=== PATIENT | female | born 1975 | race Caucasian/White ===

== ENCOUNTER 2020-01-08 10:03 | Emergency (ER) | payer SELFPAY ==
[~2020-01-08] VITALS: Ht 165.1 cm; Wt 81.6 kg
[2020-01-08] MEDS ORDERED: ACETAMINOPHEN 325 MG TAB PO ONE (11:15)
[2020-01-08] MEDS ORDERED: KETOROLAC TROMETHAMINE 60 MG/2 ML VIAL IM ONE (11:15)
--- NOTE | 2020-01-08 11:16 | NUR ---
REC'D PT IN [facility] WITH C/O PAIN TO THE RIGHT HAND.
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
--- OUTSIDE RECORDS SUMMARY | 2020-01-08 11:30 | XMS REPORT | Summary of Care ---
Author Author [facility] - Health Organization [facility] - Health Address Unknown Phone Unavailable Care Team Providers Care Ripening Room Operator Name Role Phone Pcp, Patient Does Not Have A PCP [phone] Reason for Visit * Reason Comments Refill Request Encounter Details Care Team Description Date Type Department Rg Nation MD [address] [phone] Refill Request 09/26/2019 Refill [facility] [address] [place] [phone] Allergies Comments Active Allergy Reactions Severity Noted Date Codeine Nausea and/or 02/03/2006 Vomiting, Rash Throat swelling Penicillins Rash, Unknown 02/03/2006 - See comments documented as of this encounter (statuses as of 09/26/2019) Medications End Date Status Medication Sig Dispensed Refills Start Date Active lisinopril 40 mg Take 1 tablet 90 tablet 0 02 tabletIndications: by mouth 0 Essential hypertension daily. Active zolpidem 5 mg Take 1 tablet 30 tablet 0 tabletIndications: by mouth at 0 Insomnia, unspecified bedtime as type needed for Insomnia. 09/26/2019 Discontinued (Reorder) lisinopril 40 mg Take 1 tablet 90 tablet 3 01 tabletIndications: by mouth 9 Essential hypertension daily. 09/26/2019 Discontinued (Reorder) zolpidem 5 mg Take 1 tablet 30 tablet 0 tabletIndications: by mouth at 9 Insomnia, unspecified bedtime as type needed for Insomnia. documented as of this encounter (statuses as of 09/26/2019) Active Problems Patient Care Coordination Note Please obtain Hepatitis panel, LFTs, TSH at Next visit. Thanks Problem Noted Date Insomnia 04/26/2018 Status post emergency hysterectomy 02/06/20 14 premature rupture of membranes 02/05/2014 Chorioamnionitis 02/05/2014 Anxiety 02/05/2014 Poor dentition 02/05/2014 Ileus 01/28/2014 Hepatitis C 01/14/2014 Tobacco use disorder complicating , childbir th, or puerperium, 01/11/2007 antepartum Overview: Smokes 1/2 ppd; counseled to stop. ICD10 Diagnosis Term Skip Miner Blasting Utility Drug dependence, in remission 01/11/2007 Overview: ICD10 Diagnosis Term Skip Miner Blasting Utility Alcohol abuse with alcohol-induced disorder 01/12/20 07 documented as of this encounter (statuses as of 09/26/2019) Resolved Problems Problem Noted Date Resolved Date Chorioamnionitis 01/29/2014 02/02/2014 Bladder injury 01/29/2014 02/11/2014 Abdominal distension 01/28/2014 01/29/2014 premature rupture of membranes 01/14/2014 01/29/2014 Positive blood culture 01/14/2014 02/11/2014 Chronic hypertension in 01/14/201401/22 Placenta previa 01/14/2014 01/29/2014 Overview: Cannot rule out accreta premature rupture of membranes (PPROM) delivered, odell concepcion 01/12/2014 01/14/2014 hospitalization Labor and delivery indication for care or intervention 01/14/2014 Fever 01/09/2014 01/29/2014 History of stroke 09/26/2013 02/11/2014 Overview: Pt states had stoke about 2wks after de livery of baby in year 1999, 2003 and 2008 all due to severe Pre-eclampsi a. ROR signed for these records. Elderly multigravida with antepartum condition or complicat ion 09/14/2013 01/14/2014 Overview: Age 38, refer to Genetics. Obesity complicating , childbirth, or puerpe rium, antepartum 09/14/2013 02/11/2014 Overview: ICD10 Diagnosis Term Skip Miner Blasting Utility Disorder of thyroid 01/11/2007 01/14/2014 Overview: ICD10 Diagnosis Term Skip Miner Blasting Utility Bipolar disorder 01/11/2007 01/14/2014 Overview: ICD10 Diagnosis Term Skip Miner Blasting Utility Personal history of other mental disorder 01/11/2007 01/09/2014 ATYPICAL DEPRESSIVE DIS 01/11/2007 01/14/2014 Obesity 01/11/2007 09/14/2013 Overview: ICD10 Diagnosis Term Skip Miner Blasting Utility Supervision of other high-risk 01/11/2007 09/14/2013 Overview: ICD10 Diagnosis Term Skip Miner Blasting Utility Suicidal ideation 02/03/2006 09/14/2013 Bipolar I disorder, most recent episode (or current) unspec ified 02/03/2006 09/14/2013 documented as of this encounter (statuses as of 09/26/2019) Immunizations Name Administration Dates Next Due HEP B, Adult Dosage 04/26/2018 Influenza Virus Vaccine 04/26/2018 Quad .5 mL IM 6+ MO Influenza Virus Vaccine 07/06/2017 Quad IM 3+ YRS Rho (d) Immune Globulin 03/27/2018 (Deferred: Sedrick torre Refused) Td 07/21/2013 Twinrix (hep a/hep b) 03/27/2018 documented as of this encounter Social History Date Tobacco Use Types Packs/Day Years Used Current Every Day Smoker Cigarettes 0.5 30 Smokeless Tobacco: Never Used Comments: 10 packs daily x 16-20 years; reduced Drinks/Week oz/Week Comments Alcohol Use 6 x daily x 15 years ; given up x 8 years No Sex Assigned at Date Recorded Not on file Industry Job Start Date Occupation Not on file Not on file Not on file Travel End Travel History Travel Start No recent travel history available. documented as of this encounter Last Filed Vital Signs Not on filedocumented in this encounter Plan of Treatment Health Maintenance Due Date Last Done Comments PNEUMOCOCCAL 0-64 YEARS 08/04/1979 COMBINED SERIES (1 of 1 - PPSV23) DTaP,Tdap,and Td Vaccines 1984 07/21/2013 (1 - Tdap) PAP SMEAR 01/10/2010 01/10/2007, 005 Breast Cancer Screening 2013 (MAMMOGRAM) INFLUENZA VACCINE (Season 01/22/2020 04/26/2018, 07/06/2017 Ended) documented as of this encounter Implants Device Identifier Shelf Expiration Date Model / Serial / L ot Implanted Type Area Manufactur er 07/20/2014 [id number] / / [id number] Stent Ureteral Percuflex Plus 6fr STENT Left: Ureter [place] [id number] [employer] #[id number] - [id number] Implanted: Qty: 1 on 01/31/2014 by Paty Ramirez MD at [facility] documented as of this encounter Results Not on filedocumented in this encounter Visit Diagnoses Diagnosis Essential hypertension Unspecified essential hypertension Insomnia, unspecified type documented in this encounter Insurance Type Payer Benefit Subscriber ID Effective Phone Address Plan / Dates Group Medicare Adv FFS HUMANA - MANAGED MEDICARE HUMANA [id number] 2017-P MEDICARE resent Medicaid [employer] [place] [employer] xxxxxxxxx 2018- P O [place] Present [address] [place] [address] documented as of this encounter
--- OUTSIDE RECORDS SUMMARY | 2020-01-08 11:30 | XMS REPORT | Summary of Care ---
Author Author [facility] - [facility] Organization [facility] - [facility] Address Unknown Phone Unavailable Care Team Providers Care Ticket Puller Name Role Phone Pcp, Patient Does Not Have A PCP [phone] Reason for Visit * Reason Comments Results Encounter Details Care Team Description Date Type Department Ciro Fernandez MD [address] [place] [address] [phone] Results 10/24/2019 [facility] [address] [facility] [address] [place] [phone] Allergies Comments Active Allergy Reactions Severity Noted Date Codeine Nausea and/or 02/03/2006 Vomiting, Rash Throat swelling Penicillins Rash, Unknown 02/03/2006 - See comments documented as of this encounter (statuses as of 10/24/2019) Medications End Date Status Medication Sig Dispensed Refills Start Date Active lisinopril 40 mg Take 1 tablet 90 tablet 0 02 tabletIndications: by mouth 0 Essential hypertension daily. Active zolpidem 5 mg Take 1 tablet 30 tablet 0 tabletIndications: by mouth at 0 Insomnia, unspecified bedtime as type needed for Insomnia. documented as of this encounter (statuses as of 10/24/2019) Active Problems Patient Care Coordination Note Please [...] ppd; counseled to stop. ICD10 Diagnosis Term Mechanical Maintenance Utility Drug dependence, in remission 01/11/2007 Overview: ICD10 Diagnosis Term Mechanical Maintenance Utility Alcohol abuse with alcohol-induced disorder 01/12/20 07 documented as of this encounter (statuses as of 10/24/2019) Resolved Problems Problem Noted Date Resolved Date Chorioamnionitis 01/29/2014 02/02/2014 Bladder injury 01/29/2014 02/11/2014 Abdominal distension 01/28/2014 01/29/2014 premature rupture of membranes 01/14/2014 01/29/2014 Positive blood culture 01/14/2014 02/11/2014 Chronic hypertension in 01/14/201401/22 Placenta previa 01/14/2014 01/29/2014 Overview: Cannot rule out accreta premature rupture of membranes (PPROM) delivered, odell poolerent 01/12/2014 01/14/2014 hospitalization Labor and delivery indication [...] antepartum 09/14/2013 02/11/2014 Overview: ICD10 Diagnosis Term Mechanical Maintenance Utility Disorder of thyroid 01/11/2007 01/14/2014 Overview: ICD10 Diagnosis Term Mechanical Maintenance Utility Bipolar disorder 01/11/2007 01/14/2014 Overview: ICD10 Diagnosis Term Mechanical Maintenance Utility Personal history of other mental disorder 01/11/2007 01/09/2014 ATYPICAL DEPRESSIVE DIS 01/11/2007 01/14/2014 Obesity 01/11/2007 09/14/2013 Overview: ICD10 Diagnosis Term Mechanical Maintenance Utility Supervision of other high-risk 01/11/2007 09/14/2013 Overview: ICD10 Diagnosis Term Mechanical Maintenance Utility Suicidal ideation 02/03/2006 09/14/2013 Bipolar I disorder, most recent episode (or current) unspec ified 02/03/2006 09/14/2013 documented as of this encounter (statuses as of 10/24/2019) Immunizations Name Administration Dates Next Due HEP B, Adult Dosage 04/26/2018 Influenza Virus Vaccine 04/26/2018 Quad .5 mL IM 6+ MO Influenza Virus Vaccine 07/06/2017 Quad IM 3+ YRS Rho (d) Immune Globulin 03/27/2018 (Deferred: Patie nt Refused) Td 07/21/2013 Twinrix (hep a/hep b) [...] filedocumented in this encounter Plan of Treatment Care Team Description Date Type Specialty Nurse, Transplant 10/30/2019 Nurse Visit Surgery Health Maintenance Due Date Last Done Comments PNEUMOCOCCAL 0-64 YEARS 08/04/1979 COMBINED SERIES (1 of 1 - PPSV23) DTaP,Tdap,and Td Vaccines 1984 07/21/2013 (1 - Tdap) Depression Screening 1985 PAP SMEAR 01/10/2010 01/10/2007, 005 Breast Cancer Screening 2013 (MAMMOGRAM) INFLUENZA VACCINE (Season 01/22/2020 04/26/2018, 07/06/2017 Ended) documented as of this encounter Implants Device Identifier Shelf Expiration Date Model / Serial / L ot Implanted Type Area Manufactur er 07/20/2014 [id number] / / [id number] Stent Ureteral Percuflex Plus 6fr STENT Left: Ureter [place] [id number] [employer] #[id number] - [id number] Implanted: Qty: 1 on 01/31/2014 by Paty Ramirez MD at [facility] documented as of this encounter Results Not on filedocumented in this encounter Insurance Type Payer Benefit Subscriber ID Effective Phone Address Plan / Dates Group Medicare Adv FFS HUMANA - MANAGED MEDICARE HUMANA [id number] 2017-P MEDICARE resent Medicaid [employer] [place] [employer] xxxxxxxxx 2018- P O EDITH Hook [facility] Present [address] [place] [address] documented as of this encounter
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
--- OUTSIDE RECORDS SUMMARY | 2020-01-08 11:30 | XMS REPORT | Summary of Care ---
Author Author [facility] - Health Organization [facility] - Health Address Unknown Phone Unavailable Care Team Providers Care Inbound Call Center Agent Name Role Phone Pcp, Patient Does Not Have A PCP [phone] Reason for Visit * Reason Comments Refill Request Encounter Details Care Team Description Date Type Department Rg Nation MD [address] [phone] Refill Request 06/16/2019 Refill [facility] Intern[facility] Medicine- [facility] [address] [place] [phone] Allergies Comments Active Allergy Reactions Severity Noted Date Codeine Nausea and/or 02/03/2006 Vomiting, Rash Throat swelling Penicillins Rash, Unknown 02/03/2006 - See comments documented as of this encounter (statuses as of 06/16/2019) Medications End Date Status Medication Sig Dispensed Refills Start Date Active lisinopril 40 mg Take 1 tablet 90 tablet 3 01 tabletIndications: by mouth 9 Essential hypertension daily. Active zolpidem 5 mg Take 1 tablet 30 tablet 0 tabletIndications: by mouth at 9 Insomnia, unspecified bedtime as type needed for Insomnia. documented as of this encounter (statuses as of 06/16/2019) Active Problems Patient Care Coordination Note Please [...] ppd; counseled to stop. ICD10 Diagnosis Term Process Improvement Engineer Utility Drug dependence, in remission 01/11/2007 Overview: ICD10 Diagnosis Term Process Improvement Engineer Utility Alcohol abuse with alcohol-induced disorder 01/12/20 07 documented as of this encounter (statuses as of 06/16/2019) Resolved Problems Problem Noted Date Resolved Date Chorioamnionitis 01/29/2014 02/02/2014 Bladder injury 01/29/2014 02/11/2014 Abdominal distension 01/28/2014 01/29/2014 premature rupture of membranes 01/14/2014 01/29/2014 Positive blood culture 01/14/2014 02/11/2014 Chronic hypertension in 01/14/201401/22 Placenta previa 01/14/2014 01/29/2014 Overview: Cannot rule out accreta premature rupture of membranes (PPROM) delivered, c urrent 01/12/2014 01/14/2014 hospitalization Labor and delivery indication for care or intervention 01/14/2014 Fever 01/09/2014 01/29/2014 History of stroke 09/26/2013 02/11/2014 Overview: Pt states had stoke about 2wks after de livery of baby in year 1999, 2003 and 2008 all due to severe Pre-eclampsi moises [place] signed for these records. Elderly multigravida with antepartum condition or complicat ion 09/14/2013 01/14/2014 Overview: Age 38, refer to Genetics. Obesity complicating , childbirth, or puerpe rium, antepartum 09/14/2013 02/11/2014 Overview: ICD10 Diagnosis Term Process Improvement Engineer Utility Disorder of thyroid 01/11/2007 01/14/2014 Overview: ICD10 Diagnosis Term Process Improvement Engineer Utility Bipolar disorder 01/11/2007 01/14/2014 Overview: ICD10 Diagnosis Term Process Improvement Engineer Utility Personal history of other mental disorder 01/11/2007 01/09/2014 ATYPICAL DEPRESSIVE DIS 01/11/2007 01/14/2014 Obesity 01/11/2007 09/14/2013 Overview: ICD10 Diagnosis Term Process Improvement Engineer Utility Supervision of other high-risk 01/11/2007 09/14/2013 Overview: ICD10 Diagnosis Term Process Improvement Engineer Utility Suicidal ideation 02/03/2006 09/14/2013 Bipolar I disorder, most recent episode (or current) unspec ified 02/03/2006 09/14/2013 documented as of this encounter (statuses as of 06/16/2019) Immunizations Name Administration Dates Next Due HEP [...] Treatment Care Team Description Date Type Specialty Romy To MD [id number] [place], [place] [phone] 07/03/2019 Office Visit Obstetrics & Gyneco logy Health Maintenance Due Date Last Done Comments [...] ot Implanted Type Area Manufactur er 07/20/2014 [id number] / / [id number] Stent Ureteral Percuflex Plus 6fr STENT Left: Ureter [place] [id number] [employer] #[id number] - [id number] Implanted: Qty: 1 on 01/31/2014 by Paty Ramirez MD at [facility] documented as of this encounter Results Not on filedocumented in this encounter Visit Diagnoses Diagnosis Insomnia, unspecified type documented in this encounter Insurance Type Payer Benefit Subscriber ID Effective Phone Address Plan / Dates Group Medicare Adv FFS HUMANA - MANAGED MEDICARE HUMANA [id number] 2017-P MEDICARE resent Medicaid [facility] MEDICAID xxxxxxxxx 2012-P [phone] [address] [facility] [address] [place] [address] documented as of this encounter
--- OUTSIDE RECORDS SUMMARY | 2020-01-08 11:30 | XMS REPORT | Summary of Care ---
Author Author [facility] - Health Organization [facility] - Health Address Unknown Phone Unavailable Care Team Providers Care Manager Sql Name Role Phone Pcp, Patient Does Not Have A PCP [phone] Reason for Visit * Reason Comments Refill Request Encounter Details Care Team Description Date Type Department Rg Nation MD [address] [phone] Refill Request 06/17/2019 Refill [facility] Intern[facility] Medicine[facility] [address] [place] [phone] Allergies Comments Active Allergy Reactions Severity Noted Date Codeine Nausea and/or 02/03/2006 Vomiting, Rash Throat swelling Penicillins Rash, Unknown 02/03/2006 - See comments documented as of this encounter (statuses as of 06/19/2019) Medications End Date Status Medication Sig Dispensed Refills Start Date Active lisinopril 40 mg Take 1 tablet 90 tablet 3 01 tabletIndications: by mouth 9 Essential hypertension daily. Active zolpidem 5 mg Take 1 tablet 30 tablet 0 tabletIndications: by mouth at 9 Insomnia, unspecified bedtime as type needed for Insomnia. documented as of this encounter (statuses as of 06/19/2019) Active Problems Patient Care Coordination Note Please [...] ppd; counseled to stop. ICD10 Diagnosis Term Rigger Helper Utility Drug dependence, in remission 01/11/2007 Overview: ICD10 Diagnosis Term Rigger Helper Utility Alcohol abuse with alcohol-induced disorder 01/12/20 07 documented as of this encounter (statuses as of 06/19/2019) Resolved Problems Problem Noted Date Resolved Date [...] antepartum 09/14/2013 02/11/2014 Overview: ICD10 Diagnosis Term Rigger Helper Utility Disorder of thyroid 01/11/2007 01/14/2014 Overview: ICD10 Diagnosis Term Rigger Helper Utility Bipolar disorder 01/11/2007 01/14/2014 Overview: ICD10 Diagnosis Term Rigger Helper Utility Personal history of other mental disorder 01/11/2007 01/09/2014 ATYPICAL DEPRESSIVE DIS 01/11/2007 01/14/2014 Obesity 01/11/2007 09/14/2013 Overview: ICD10 Diagnosis Term Rigger Helper Utility Supervision of other high-risk 01/11/2007 09/14/2013 Overview: ICD10 Diagnosis Term Rigger Helper Utility Suicidal ideation 02/03/2006 09/14/2013 Bipolar I disorder, most recent episode (or current) unspec ified 02/03/2006 09/14/2013 documented as of this encounter (statuses as of 06/19/2019) Immunizations Name Administration Dates Next Due HEP [...] Specialty Romy To MD [id number] [place], [place] [phone] 07/03/2019 Office Visit Obstetrics & Gyneco logy [...] ot Implanted Type Area Manufactur er 07/20/2014 [id number] / / [id number] Stent Ureteral Percuflex Plus 6fr STENT Left: Ureter [place] [id number] [employer] Scientific #[id number] - [id number] Implanted: Qty: 1 on 01/31/2014 by Paty Ramirez MD at [facility] documented as of this encounter Results Not on filedocumented in this encounter Visit Diagnoses Diagnosis Insomnia, unspecified type documented in this encounter Insurance Type Payer Benefit Subscriber ID Effective Phone Address Plan / Dates Group Medicare Adv FFS HUMANA - MANAGED MEDICARE HUMANA [id number] 2017-P MEDICARE resent Medicaid [facility] MEDICAID xxxxxxxxx 2012-P [phone] [address] [facility] [address] [place] [address] documented as of this encounter
--- OUTSIDE RECORDS SUMMARY | 2020-01-08 11:30 | XMS REPORT | Summary of Care ---
Author Author [facility] [[email or web address] - Health Organization [facility] [[email or web address] - Health Address Unknown Phone Unavailable Care Team Providers Care Stone Driller Name Role Phone Pcp, Patient Does Not Have A PCP [phone] Encounter Details Care Team Description Date Type Department Ciro Fernandez MD [address] [place] [address] [phone] 10/24/2019 Patient Secure Critical access hospital [facility]ology[facility] [address] [place] [phone] Allergies Comments Active Allergy Reactions Severity Noted Date Codeine Nausea and/or 02/03/2006 Vomiting, Rash Throat swelling Penicillins Rash, Unknown 02/03/2006 - See comments documented as of this encounter (statuses as of 11/24/2019) Medications End Date Status Medication Sig Dispensed Refills Start Date Active lisinopril 40 mg Take 1 tablet 90 tablet 0 02 tabletIndications: by mouth 0 Essential hypertension daily. documented as of this encounter (statuses as of 11/24/2019) Active Problems Patient Care Coordination Note Please [...] ppd; counseled to stop. ICD10 Diagnosis Term Shampoo Assistant Utility Drug dependence, in remission 01/11/2007 Overview: ICD10 Diagnosis Term Shampoo Assistant Utility Alcohol abuse with alcohol-induced disorder 01/12/20 07 documented as of this encounter (statuses as of 11/24/2019) Resolved Problems Problem Noted Date Resolved Date [...] antepartum 09/14/2013 02/11/2014 Overview: ICD10 Diagnosis Term Shampoo Assistant Utility Disorder of thyroid 01/11/2007 01/14/2014 Overview: ICD10 Diagnosis Term Shampoo Assistant Utility Bipolar disorder 01/11/2007 01/14/2014 Overview: ICD10 Diagnosis Term Shampoo Assistant Utility Personal history of other mental disorder 01/11/2007 01/09/2014 ATYPICAL DEPRESSIVE DIS 01/11/2007 01/14/2014 Obesity 01/11/2007 09/14/2013 Overview: ICD10 Diagnosis Term Shampoo Assistant Utility Supervision of other high-risk 01/11/2007 09/14/2013 Overview: ICD10 Diagnosis Term Shampoo Assistant Utility Suicidal ideation 02/03/2006 09/14/2013 Bipolar I disorder, most recent episode (or current) unspec ified 02/03/2006 09/14/2013 documented as of this encounter (statuses as of 11/24/2019) Immunizations Name Administration Dates Next Due HEP [...] Treatment Care Team Description Date Type Specialty Hilda Nelson, [facility] [address] [facility] [address] [place] [address] [phone] 11/27/2019 Office Visit Gastroenterology Health Maintenance Due Date Last Done Comments PNEUMOCOCCAL 0-64 YEARS 08/04/1979 COMBINED SERIES (1 of 1 - PPSV23) DTaP,Tdap,and Td Vaccines 1984 07/21/2013 (1 - Tdap) Depression Screening 1985 PAP SMEAR 01/10/2010 01/10/2007, 005 Breast Cancer Screening 2013 (MAMMOGRAM) INFLUENZA VACCINE (#1) 2020 04/26/2018, documented as of this encounter Implants Device Identifier Shelf Expiration Date Model / Serial / L ot Implanted Type Area Manufactur er 07/20/2014 [id number] / / [id number] Stent Ureteral Percuflex Plus 6fr STENT Left: Ureter [place] [id number] My[employer] #[id number] - [id number] Implanted: Qty: 1 on 01/31/2014 by Paty Ramirez MD at [facility] documented as of this encounter Results Not on filedocumented in this encounter Insurance Type Payer Benefit Subscriber ID Effective Phone Address Plan / Dates Group Medicare [facility] [id number] 2019-P [address] MEDICARE ADVANTAGE GE DUAL resent [id number] [facility] [address] Medicaid [facility] xxxxxxxxx 2018- P O [facility] [place] Present [address] [place] [address] documented as of this encounter
--- OUTSIDE RECORDS SUMMARY | 2020-01-08 11:30 | XMS REPORT | Summary of Care ---
Author Author [facility] - Health Organization [facility] - Health Address Unknown Phone Unavailable Care Team Providers Care Stitcher Hand Name Role Phone Pcp, Patient Does Not Have A PCP [phone] Reason for Visit * Reason Comments Refill Request Encounter Details Care Team Description Date Type Department Rg Nation MD [address] [phone] Refill Request 11/08/2019 Refill [facility] Health Interna l Medicine- Multispecialty Ctr 2660 [facility], [place] [phone] Allergies Comments Active Allergy Reactions Severity Noted Date Codeine Nausea and/or 02/03/2006 Vomiting, Rash Throat swelling Penicillins Rash, Unknown 02/03/2006 - See comments documented as of this encounter (statuses as of 11/08/2019) Medications End Date Status Medication Sig Dispensed Refills Start Date Active lisinopril 40 mg Take 1 tablet 90 tablet 0 02 tabletIndications: by mouth 0 Essential hypertension daily. Active zolpidem 5 mg Take 1 tablet 30 tablet 0 tabletIndications: by mouth at 0 Insomnia, unspecified bedtime as type needed for Insomnia. 11/08/2019 Discontinued (Reorder) zolpidem 5 mg Take 1 tablet 30 tablet 0 tabletIndications: by mouth at 0 Insomnia, unspecified bedtime as type needed for Insomnia. documented as of this encounter (statuses as of 11/08/2019) Active Problems Patient Care Coordination Note Please [...] ppd; counseled to stop. ICD10 Diagnosis Term Military Aircraft Designer Utility Drug dependence, in remission 01/11/2007 Overview: ICD10 Diagnosis Term Military Aircraft Designer Utility Alcohol abuse with alcohol-induced disorder 01/12/20 07 documented as of this encounter (statuses as of 11/08/2019) Resolved Problems Problem Noted Date Resolved Date [...] antepartum 09/14/2013 02/11/2014 Overview: ICD10 Diagnosis Term Military Aircraft Designer Utility Disorder of thyroid 01/11/2007 01/14/2014 Overview: ICD10 Diagnosis Term Military Aircraft Designer Utility Bipolar disorder 01/11/2007 01/14/2014 Overview: ICD10 Diagnosis Term Military Aircraft Designer Utility Personal history of other mental disorder 01/11/2007 01/09/2014 ATYPICAL DEPRESSIVE DIS 01/11/2007 01/14/2014 Obesity 01/11/2007 09/14/2013 Overview: ICD10 Diagnosis Term Military Aircraft Designer Utility Supervision of other high-risk 01/11/2007 09/14/2013 Overview: ICD10 Diagnosis Term Military Aircraft Designer Utility Suicidal ideation 02/03/2006 09/14/2013 Bipolar I disorder, most recent episode (or current) unspec ified 02/03/2006 09/14/2013 documented as of this encounter (statuses as of 11/08/2019) Immunizations Name Administration Dates Next Due HEP [...] Team Description Date Type Specialty Hilda Nelson, KENAN 2[address] [facility] [address] [place] [address] [phone] 11/27/2019 Office Visit Gastroenterology Health Maintenance Due [...] ot Implanted Type Area Manufactur er 07/20/2014 [id number] / / [id number] Stent Ureteral Percuflex Plus 6fr STENT Left: Ureter [place] [id number] [employer] #[id number] - [id number] Implanted: Qty: 1 on 01/31/2014 by Paty Ramirez MD at [facility] documented as of this encounter Results Not on filedocumented in this encounter Visit Diagnoses Diagnosis Insomnia, unspecified type documented in this encounter Insurance Type Payer Benefit Subscriber ID Effective Phone Address Plan / Dates Group Medicare Adv FFS HUMANA - MANAGED MEDICARE HUMANA [id number] 2017-P MEDICARE resent Medicaid [employer] [place] [employer] xxxxxxxxx 2018- P O [place] Present [address] [place] [address] documented as of this encounter
--- OUTSIDE RECORDS SUMMARY | 2020-01-08 11:30 | XMS REPORT | Summary of Care ---
Author Author [facility] - Health Organization [facility] - Health Address Unknown Phone Unavailable Care Team Providers Care Pipe Fitter Maintenance Name Role Phone Pcp, Patient Does Not Have A PCP [phone] Reason for Referral * (Routine) Referred By Contact Referred To Contact Status Reason Specialty Diagnoses / Procedures Ciro Fernandez MD [address] [place] [id number] New Request Psychiatry Diagnoses Establishing care with new doctor, encounter for Drug dependence, in remission Alcohol abuse with alcohol-induced disorder P rocedures CONSULT/REFERRAL PSYCHIATRY ADULT Reason for Visit * Reason Comments Referral/consult Encounter Details Care Team Description Date Type Department Ciro Fernandez MD [address] [place] [phone] Referral/consult 06/06/2019 Case Management [facility] Gastroenterology- Multispecialty Ctr [address] [place] [phone] Allergies Comments Active Allergy Reactions Severity Noted Date Codeine Nausea and/or 02/03/2006 Vomiting, Rash Throat swelling Penicillins Rash, Unknown 02/03/2006 - See comments documented as of this encounter (statuses as of 06/06/2019) Medications End Date Status Medication Sig Dispensed Refills Start Date Active lisinopril 40 mg Take 1 tablet 90 tablet 3 01 tabletIndications: by mouth 9 Essential hypertension daily. Active zolpidem 5 mg Take 1 tablet 30 tablet 0 tabletIndications: by mouth at 9 Insomnia, unspecified bedtime as type needed for Insomnia. documented as of this encounter (statuses as of 06/06/2019) Active Problems Patient Care Coordination Note Please [...] ppd; counseled to stop. ICD10 Diagnosis Term Used Equipment Sales Representative Utility Drug dependence, in remission 01/11/2007 Overview: ICD10 Diagnosis Term Used Equipment Sales Representative Utility Alcohol abuse with alcohol-induced disorder 01/12/20 07 documented as of this encounter (statuses as of 06/06/2019) Resolved Problems Problem Noted Date Resolved Date [...] antepartum 09/14/2013 02/11/2014 Overview: ICD10 Diagnosis Term Used Equipment Sales Representative Utility Disorder of thyroid 01/11/2007 01/14/2014 Overview: ICD10 Diagnosis Term Used Equipment Sales Representative Utility Bipolar disorder 01/11/2007 01/14/2014 Overview: ICD10 Diagnosis Term Used Equipment Sales Representative Utility Personal history of other mental disorder 01/11/2007 01/09/2014 ATYPICAL DEPRESSIVE DIS 01/11/2007 01/14/2014 Obesity 01/11/2007 09/14/2013 Overview: ICD10 Diagnosis Term Used Equipment Sales Representative Utility Supervision of other high-risk 01/11/2007 09/14/2013 Overview: ICD10 Diagnosis Term Used Equipment Sales Representative Utility Suicidal ideation 02/03/2006 09/14/2013 Bipolar I disorder, most recent episode (or current) unspec ified 02/03/2006 09/14/2013 documented as of this encounter (statuses as of 06/06/2019) Immunizations Name Administration Dates Next Due HEP B, Adult Dosage 04/26/2018 Influenza Virus Vaccine 04/26/2018 Quad .5 mL IM 6+ MO Influenza Virus Vaccine 07/06/2017 Quad IM 3+ YRS Rho (d) Immune Globulin 03/27/2018 (Deferred: Sedrick nt Refused) Td 07/21/2013 Twinrix (hep a/hep [...] Signs Not on filedocumented in this encounter Progress Notes * Clarisse Jurado RN - 06/06/2019 8:23 AM [employer] Pt is needing to establish care with psychiatry due to a history of bipolar, alc ohol and drug abuse. Patient was previously treated by Dr. Fernandez for HCV and p atient remains in contact with board writer and requested board writer to assist with this. She is concerned she will relapse again as she already did in 2019. Patient awar e referral placed and someone from psychiatry will contact her. She verbalized u nderstanding. [employer] documented in this encounter Plan of Treatment [...] ot Implanted Type Area Manufactur er 07/20/2014 [id number] / / [id number] Stent Ureteral Percuflex Plus 6fr STENT Left: Ureter [place] [id number] [employer] #[id number] - [id number] Implanted: Qty: 1 on 01/31/2014 by Paty Ramirez MD at [facility] documented as of this encounter Results Not on filedocumented in this encounter Visit Diagnoses Diagnosis Establishing care with new doctor, enco unter for - Primary Drug dependence, in remission Unspecified drug dependence, in remissi on Alcohol abuse with alcohol-induced diso rder Unspecified alcohol induced mental diso rders documented in this encounter Insurance Type Payer Benefit Subscriber ID Effective Phone Address Plan / Dates Group Medicare Adv FFS HUMANA - MANAGED MEDICARE HUMANA [id number] 2017-P MEDICARE resent Medicaid [facility] MEDICAID xxxxxxxxx 2012-P [phone] P O [facility] resent [id number] [place] [address] documented as of this encounter
--- OUTSIDE RECORDS SUMMARY | 2020-01-08 11:30 | XMS REPORT | Summary of Care ---
Author Author [facility] - Health Organization [facility] - Health Address Unknown Phone Unavailable Care Team Providers Care Contractor Field Hauling Name Role Phone Pcp, Patient Does Not Have A PCP Encounter Details Care Team Description Date Type Department Doctor Unassigned, [place] [address] [place] [phone] Orders Only [facility] [address] [place] [address] Allergies Comments Active Allergy Reactions Severity Noted [...] ppd; counseled to stop. ICD10 Diagnosis Term Rn Clinical Documentation Specialist Utility Drug dependence, in remission 01/11/2007 Overview: ICD10 Diagnosis Term Rn Clinical Documentation Specialist Utility Alcohol abuse with alcohol-induced disorder 01/12/20 [...] antepartum 09/14/2013 02/11/2014 Overview: ICD10 Diagnosis Term Rn Clinical Documentation Specialist Utility Disorder of thyroid 01/11/2007 01/14/2014 Overview: ICD10 Diagnosis Term Rn Clinical Documentation Specialist Utility Bipolar disorder 01/11/2007 01/14/2014 Overview: ICD10 Diagnosis Term Rn Clinical Documentation Specialist Utility Personal history of other mental disorder 01/11/2007 01/09/2014 ATYPICAL DEPRESSIVE DIS 01/11/2007 01/14/2014 Obesity 01/11/2007 09/14/2013 Overview: ICD10 Diagnosis Term Rn Clinical Documentation Specialist Utility Supervision of other high-risk 01/11/2007 09/14/2013 Overview: ICD10 Diagnosis Term Rn Clinical Documentation Specialist Utility Suicidal ideation 02/03/2006 09/14/2013 Bipolar I [...] ot Implanted Type Area Manufactur er 07/20/2014 [id number] / / [id number] Stent Ureteral Percuflex Plus 6fr STENT Left: Ureter [place] [id number] Rapid Pathogen Screening #[id number] - [id number] Implanted: Qty: 1 on 01/31/2014 by Paty Ramirez MD at [facility] documented as of this encounter Procedures Comments Procedure Name Priority Date/Time Associated Diag nosis NOTICE OF BILLING Routine 2019 [employer] [employer] MEDICARE 12:01 PM CDT PATIENTS documented in this encounter Results Not on filedocumented in this encounter Insurance Type Payer Benefit Subscriber ID Effective Phone Address Plan / Dates Group Medicare Adv FFS HUMANA - MANAGED MEDICARE HUMANA [id number] 2017-P MEDICARE resent Medicaid [facility] MEDICAID xxxxxxxxx 2012-P [phone] P O [facility] [id number] [place] [address] documented as of this encounter
--- OUTSIDE RECORDS SUMMARY | 2020-01-08 11:30 | XMS REPORT | Summary of Care ---
Author Author [facility] - Health Organization [facility] - Health Address Unknown Phone Unavailable Care Team Providers Care Yarding Engineer Name Role Phone Pcp, Patient Does Not Have A PCP [phone] Reason for Visit * Reason Comments Refill Request Encounter Details Care Team Description Date Type Department Rg Nation MD [address] [phone] Refill Request 06/28/2019 Refill [facility] Health Interna Medicine- Multispecialty Ctr 2660 [place] [phone] Allergies Comments Active Allergy Reactions Severity Noted Date Codeine Nausea and/or 02/03/2006 Vomiting, Rash Throat swelling Penicillins Rash, Unknown 02/03/2006 - See comments documented as of this encounter (statuses as of 06/29/2019) Medications End Date Status Medication Sig Dispensed Refills Start Date Active lisinopril 40 mg Take 1 tablet 90 tablet 3 01 tabletIndications: by mouth 9 Essential hypertension daily. Active zolpidem 5 mg Take 1 tablet 30 tablet 0 tabletIndications: by mouth at 9 Insomnia, unspecified bedtime as type needed for Insomnia. documented as of this encounter (statuses as of 06/29/2019) Active Problems Patient Care Coordination Note Please [...] ppd; counseled to stop. ICD10 Diagnosis Term Surgical Resident Utility Drug dependence, in remission 01/11/2007 Overview: ICD10 Diagnosis Term Surgical Resident Utility Alcohol abuse with alcohol-induced disorder 01/12/20 07 documented as of this encounter (statuses as of 06/29/2019) Resolved Problems Problem Noted Date Resolved Date [...] antepartum 09/14/2013 02/11/2014 Overview: ICD10 Diagnosis Term Surgical Resident Utility Disorder of thyroid 01/11/2007 01/14/2014 Overview: ICD10 Diagnosis Term Surgical Resident Utility Bipolar disorder 01/11/2007 01/14/2014 Overview: ICD10 Diagnosis Term Surgical Resident Utility Personal history of other mental disorder 01/11/2007 01/09/2014 ATYPICAL DEPRESSIVE DIS 01/11/2007 01/14/2014 Obesity 01/11/2007 09/14/2013 Overview: ICD10 Diagnosis Term Surgical Resident Utility Supervision of other high-risk 01/11/2007 09/14/2013 Overview: ICD10 Diagnosis Term Surgical Resident Utility Suicidal ideation 02/03/2006 09/14/2013 Bipolar I disorder, most recent episode (or current) unspec ified 02/03/2006 09/14/2013 documented as of this encounter (statuses as of 06/29/2019) Immunizations Name Administration Dates Next Due HEP [...] Specialty Romy To MD [id number] [place], [place] [id number] 07/03/2019 Office Visit Obstetrics & Gyneco logy [...] ot Implanted Type Area Manufactur er 07/20/2014 [id number] / / [id number] Stent Ureteral Percuflex Plus 6fr STENT Left: Ureter [place] [id number] [employer] #[id number] - [id number] Implanted: Qty: 1 on 01/31/2014 by Paty Ramirez MD at [facility] documented as of this encounter Results Not on filedocumented in this encounter Visit Diagnoses Diagnosis Insomnia, unspecified type documented in this encounter Insurance Type Payer Benefit Subscriber ID Effective Phone Address Plan / Dates Group Medicare Adv FFS HUMANA - MANAGED MEDICARE HUMANA [id number] 2017-P MEDICARE resent Medicaid [facility] MEDICAID xxxxxxxxx 2012-P [phone] P O [facility] [address] [place] [address] documented as of this encounter
--- OUTSIDE RECORDS SUMMARY | 2020-01-08 11:30 | XMS REPORT | Summary of Care ---
Author Author [facility] - Health Organization [facility] - Health Address Unknown Phone Unavailable Care Team Providers Care Engineering Test Mechanic Name Role Phone Pcp, Patient Does Not Have A PCP [phone] Reason for Visit * Reason Comments Refill Request Encounter Details Care Team Description Date Type Department Rg Nation MD [address] [phone] Refill Request 09/26/[address] [facility] Health Interna Medicine- Multispecialty Ctr 2660 [place] [phone] Allergies Comments Active Allergy Reactions Severity Noted Date Codeine Nausea and/or 02/03/2006 Vomiting, Rash Throat swelling Penicillins Rash, Unknown 02/03/2006 - See comments documented as of this encounter (statuses as of 09/27/2019) Medications End Date Status Medication Sig Dispensed Refills Start Date Active lisinopril 40 mg Take 1 tablet 90 tablet 0 02 tabletIndications: by mouth 0 Essential hypertension daily. Active zolpidem 5 mg Take 1 tablet 30 tablet 0 tabletIndications: by mouth at 0 Insomnia, unspecified bedtime as type needed for Insomnia. documented as of this encounter (statuses as of 09/27/2019) Active Problems Patient Care Coordination Note Please [...] ppd; counseled to stop. ICD10 Diagnosis Term Program Development Manager Utility Drug dependence, in remission 01/11/2007 Overview: ICD10 Diagnosis Term Program Development Manager Utility Alcohol abuse with alcohol-induced disorder 01/12/20 07 documented as of this encounter (statuses as of 09/27/2019) Resolved Problems Problem Noted Date Resolved Date [...] 2008 all due to severe Pre-eclampsi a. FER signed for these records. Elderly multigravida with antepartum condition or complicat ion 09/14/2013 01/14/2014 Overview: Age 38, refer to Genetics. Obesity complicating , childbirth, or puerpe rium, antepartum 09/14/2013 02/11/2014 Overview: ICD10 Diagnosis Term Program Development Manager Utility Disorder of thyroid 01/11/2007 01/14/2014 Overview: ICD10 Diagnosis Term Program Development Manager Utility Bipolar disorder 01/11/2007 01/14/2014 Overview: ICD10 Diagnosis Term Program Development Manager Utility Personal history of other mental disorder 01/11/2007 01/09/2014 ATYPICAL DEPRESSIVE DIS 01/11/2007 01/14/2014 Obesity 01/11/2007 09/14/2013 Overview: ICD10 Diagnosis Term Program Development Manager Utility Supervision of other high-risk 01/11/2007 09/14/2013 Overview: ICD10 Diagnosis Term Program Development Manager Utility Suicidal ideation 02/03/2006 09/14/2013 Bipolar I disorder, most recent episode (or current) unspec ified 02/03/2006 09/14/2013 documented as of this encounter (statuses as of 09/27/2019) Immunizations Name Administration Dates Next Due HEP [...] ot Implanted Type Area Manufactur er 07/20/2014 [id number] / / [id number] Stent Ureteral Percuflex Plus 6fr STENT Left: Ureter [place] [id number] [employer] #[id number] - [id number] Implanted: Qty: 1 on 01/31/2014 by Paty Ramirez MD at [facility] documented as of this encounter Results Not on filedocumented in this encounter Visit Diagnoses Diagnosis Essential hypertension Unspecified essential hypertension Insomnia, unspecified type documented in this encounter Insurance Type Payer Benefit Subscriber ID Effective Phone Address Plan / Dates Group Medicare Adv FFS HUMANA - MANAGED MEDICARE HUMANA [id number] 2017-P MEDICARE resent Medicaid [employer] [place] [employer] xxxxxxxxx 2018- P O EDITH Hook [facility] Present [address] [place] [address] documented as of this encounter
--- OUTSIDE RECORDS SUMMARY | 2020-01-08 11:30 | XMS REPORT | Summary of Care ---
Author Author [facility] - Health Organization [facility] - Health Address Unknown Phone Unavailable Care Team Providers Care Radio Recorder Name Role Phone Pcp, Patient Does Not Have A PCP [phone] Encounter Details Care Team Description Date Type Department Rg Nation MD [address] [phone] 09/27/2019 Patient Secure [facility] Health Interna l Msg Medicine- Multispecialty Ctr 2660 [facility], [place] [phone] Allergies Comments Active Allergy Reactions Severity Noted Date Codeine Nausea and/or 02/03/2006 Vomiting, Rash Throat swelling Penicillins Rash, Unknown 02/03/2006 - See comments documented as of this encounter (statuses as of 11/03/2019) Medications End Date Status Medication Sig Dispensed Refills Start Date Active lisinopril 40 mg Take 1 tablet 90 tablet 0 02 tabletIndications: by mouth 0 Essential hypertension daily. Active zolpidem 5 mg Take 1 tablet 30 tablet 0 tabletIndications: by mouth at 0 Insomnia, unspecified bedtime as type needed for Insomnia. documented as of this encounter (statuses as of 11/03/2019) Active Problems Patient Care Coordination Note Please [...] ppd; counseled to stop. ICD10 Diagnosis Term Durability Engineer Utility Drug dependence, in remission 01/11/2007 Overview: ICD10 Diagnosis Term Durability Engineer Utility Alcohol abuse with alcohol-induced disorder 01/12/20 07 documented as of this encounter (statuses as of 11/03/2019) Resolved Problems Problem Noted Date Resolved Date [...] antepartum 09/14/2013 02/11/2014 Overview: ICD10 Diagnosis Term Durability Engineer Utility Disorder of thyroid 01/11/2007 01/14/2014 Overview: ICD10 Diagnosis Term Durability Engineer Utility Bipolar disorder 01/11/2007 01/14/2014 Overview: ICD10 Diagnosis Term Durability Engineer Utility Personal history of other mental disorder 01/11/2007 01/09/2014 ATYPICAL DEPRESSIVE DIS 01/11/2007 01/14/2014 Obesity 01/11/2007 09/14/2013 Overview: ICD10 Diagnosis Term Durability Engineer Utility Supervision of other high-risk 01/11/2007 09/14/2013 Overview: ICD10 Diagnosis Term Durability Engineer Utility Suicidal ideation 02/03/2006 09/14/2013 Bipolar I disorder, most recent episode (or current) unspec ified 02/03/2006 09/14/2013 documented as of this encounter (statuses as of 11/03/2019) Immunizations Name Administration Dates Next Due HEP [...] Team Description Date Type Specialty Hilda Nelson, [facility] [address] [facility] [address] [place] [address] [phone] 11/27/2019 Office Visit Gastroenterology Health Maintenance Due [...] ot Implanted Type Area Manufactur er 07/20/2014 [id number] / / [id number] Stent Ureteral Percuflex Plus 6fr STENT Left: Ureter [place] [id number] [employer] #[id number] - [id number] Implanted: Qty: 1 on 01/31/2014 by Paty Ramirez MD at [facility] documented as of this encounter Results Not on filedocumented in this encounter Insurance Type Payer Benefit Subscriber ID Effective Phone Address Plan / Dates Group Medicare Adv FFS HUMANA - MANAGED MEDICARE HUMANA [id number] 2017-P MEDICARE resent Medicaid [employer] [place] [employer] xxxxxxxxx 2018- P O EDITH X [facility] Present [address] [place] [address] documented as of this encounter
--- OUTSIDE RECORDS SUMMARY | 2020-01-08 11:30 | XMS REPORT | Summary of Care ---
Author Author [facility] - Health Organization [facility] - Health Address Unknown Phone Unavailable Care Team Providers Care Broadcasting Equipment Mechanic Name Role Phone Pcp, Patient Does Not Have A PCP [phone] Reason for Visit * Reason Comments Refill Request Encounter Details Care Team Description Date Type Department Rg Nation MD [address] [phone] Refill Request 09/26/2019 Refill [facility] Health Interna Medicine- Multispecialty Ctr 2660 [place] [phone] Allergies Comments Active Allergy Reactions Severity Noted [...] ppd; counseled to stop. ICD10 Diagnosis Term Clinical Research Specialist Utility Drug dependence, in remission 01/11/2007 Overview: ICD10 Diagnosis Term Clinical Research Specialist Utility Alcohol abuse with alcohol-induced disorder [...] antepartum 09/14/2013 02/11/2014 Overview: ICD10 Diagnosis Term Clinical Research Specialist Utility Disorder of thyroid 01/11/2007 01/14/2014 Overview: ICD10 Diagnosis Term Clinical Research Specialist Utility Bipolar disorder 01/11/2007 01/14/2014 Overview: ICD10 Diagnosis Term Clinical Research Specialist Utility Personal history of other mental disorder 01/11/2007 01/09/2014 ATYPICAL DEPRESSIVE DIS 01/11/2007 01/14/2014 Obesity 01/11/2007 09/14/2013 Overview: ICD10 Diagnosis Term Clinical Research Specialist Utility Supervision of other high-risk 01/11/2007 09/14/2013 Overview: ICD10 Diagnosis Term Clinical Research Specialist Utility Suicidal ideation 02/03/2006 09/14/2013 Bipolar [...] ot Implanted Type Area Manufactur er 07/20/2014 [id number] / / [id number] Stent Ureteral Percuflex Plus 6fr STENT Left: Ureter [place] [id number] [employer] #[id number] - [id number] Implanted: Qty: 1 on 01/31/2014 by Paty Ramirez MD at [facility] documented as of this encounter Results Not on filedocumented in this encounter Visit Diagnoses Diagnosis Essential hypertension Unspecified essential hypertension Insomnia, unspecified type documented in this encounter Insurance Type Payer Benefit Subscriber ID Effective Phone Address Plan / Dates Group Medicare Adv FFS HUMANA - MANAGED MEDICARE HUMANA [id number] 2017-P MEDICARE resent Medicaid [employer] [place] [employer] xxxxxxxxx 2018- P O [place] Present [address] [place] [address] documented as of this encounter
--- OUTSIDE RECORDS SUMMARY | 2020-01-08 11:30 | XMS REPORT | Summary of Care ---
Author Author [facility] - Health Organization [facility] - Health Address Unknown Phone Unavailable Care Team Providers Care Gear Tester Name Role Phone Pcp, Patient Does Not Have A PCP [phone] Reason for Visit * Reason Comments Refill Request Encounter Details Care Team Description Date Type Department Rg Nation MD [address] [phone] Refill Request 12/04/2019 Refill [facility] Health Interna l Medicine- Multispecialty Ctr 2660 [facility], [place] [address] Allergies Comments Active Allergy Reactions Severity Noted Date Codeine Nausea and/or 02/03/2006 Vomiting, Rash Throat swelling Penicillins Rash, Unknown 02/03/2006 - See comments documented as of this encounter (statuses as of 12/04/2019) Medications End Date Status Medication Sig Dispensed Refills Start Date Active lisinopril 40 mg Take 1 tablet 90 tablet 0 02 tabletIndications: by mouth 0 Essential hypertension daily. Active zolpidem 5 mg Take 1 tablet 30 tablet 0 tabletIndications: by mouth at 0 Insomnia, unspecified bedtime as type needed for Insomnia. documented as of this encounter (statuses as of 12/04/2019) Active Problems Patient Care Coordination Note Please [...] ppd; counseled to stop. ICD10 Diagnosis Term Bullet Swaging Machine Operator Utility Drug dependence, in remission 01/11/2007 Overview: ICD10 Diagnosis Term Bullet Swaging Machine Operator Utility Alcohol abuse with alcohol-induced disorder 01/12/20 07 documented as of this encounter (statuses as of 12/04/2019) Resolved Problems Problem Noted Date Resolved Date [...] antepartum 09/14/2013 02/11/2014 Overview: ICD10 Diagnosis Term Bullet Swaging Machine Operator Utility Disorder of thyroid 01/11/2007 01/14/2014 Overview: ICD10 Diagnosis Term Bullet Swaging Machine Operator Utility Bipolar disorder 01/11/2007 01/14/2014 Overview: ICD10 Diagnosis Term Bullet Swaging Machine Operator Utility Personal history of other mental disorder 01/11/2007 01/09/2014 ATYPICAL DEPRESSIVE DIS 01/11/2007 01/14/2014 Obesity 01/11/2007 09/14/2013 Overview: ICD10 Diagnosis Term Bullet Swaging Machine Operator Utility Supervision of other high-risk 01/11/2007 09/14/2013 Overview: ICD10 Diagnosis Term Bullet Swaging Machine Operator Utility Suicidal ideation 02/03/2006 09/14/2013 Bipolar I disorder, most recent episode (or current) unspec ified 02/03/2006 09/14/2013 documented as of this encounter (statuses as of 12/04/2019) Immunizations Name Administration Dates Next Due HEP [...] Treatment Care Team Description Date Type Specialty GouMathieu MD [address] [place] [address] 12/11/2019 Telemedicine Gastroenterology Visit Health Maintenance Due Date Last Done Comments [...] ot Implanted Type Area Manufactur er 07/20/2014 [id number] / / [id number] Stent Ureteral Percuflex Plus 6fr STENT Left: Ureter [place] [id number] [employer] #[id number] - [id number] Implanted: Qty: 1 on 01/31/2014 by Paty Ramirez MD at [facility] documented as of this encounter Results Not on filedocumented in this encounter Visit Diagnoses Diagnosis Essential hypertension Unspecified essential hypertension documented in this encounter Insurance Type Payer Benefit Subscriber ID Effective Phone Address Plan / Dates Group Medicare Adv HMO [facility] [id number] 2019-P [address] MEDICARE ADVANTAGE GE DUAL resent [id number] [facility] [id number] Medicaid [facility] AMERIGROUP xxxxxxxxx 2018- P O EDITH X OF [place] Present [address] [place] [address] documented as of this encounter
--- OUTSIDE RECORDS SUMMARY | 2020-01-08 11:30 | XMS REPORT | Summary of Care ---
Author Author [facility] - Health Organization [facility] - Health Address Unknown Phone Unavailable Care Team Providers Care Frame Polisher Name Role Phone Pcp, Patient Does Not Have A PCP [phone] Reason for Visit * Reason Comments Refill Request Encounter Details Care Team Description Date Type Department Rg Nation MD [address] [phone] Refill Request 09/27/2019 Refill [facility] Health Interna Medicine- Multispecialty Ctr 2660 [place] [phone] Allergies Comments Active Allergy Reactions Severity Noted [...] ppd; counseled to stop. ICD10 Diagnosis Term Media Clerk Utility Drug dependence, in remission 01/11/2007 Overview: ICD10 Diagnosis Term Media Clerk Utility Alcohol abuse with alcohol-induced disorder 01/12/20 [...] antepartum 09/14/2013 02/11/2014 Overview: ICD10 Diagnosis Term Media Clerk Utility Disorder of thyroid 01/11/2007 01/14/2014 Overview: ICD10 Diagnosis Term Media Clerk Utility Bipolar disorder 01/11/2007 01/14/2014 Overview: ICD10 Diagnosis Term Media Clerk Utility Personal history of other mental disorder 01/11/2007 01/09/2014 ATYPICAL DEPRESSIVE DIS 01/11/2007 01/14/2014 Obesity 01/11/2007 09/14/2013 Overview: ICD10 Diagnosis Term Media Clerk Utility Supervision of other high-risk 01/11/2007 09/14/2013 Overview: ICD10 Diagnosis Term Media Clerk Utility Suicidal ideation 02/03/2006 09/14/2013 Bipolar I [...] ot Implanted Type Area Manufactur er 07/20/2014 [id number] / / [id number] Stent Ureteral Percuflex Plus 6fr STENT Left: Ureter [place] [id number] [employer] #[id number] - [id number] Implanted: Qty: 1 on 01/31/2014 by Paty Ramirez MD at [facility] documented as of this encounter Results Not on filedocumented in this encounter Visit Diagnoses Diagnosis Essential hypertension Unspecified essential hypertension Insomnia, unspecified type documented in this encounter Insurance Type Payer Benefit Subscriber ID Effective Phone Address Plan / Dates Group Medicare Adv FFS HUMANA - MANAGED MEDICARE HUMANA [id number] 2017-P MEDICARE resent Medicaid [employer] [place] [employer] xxxxxxxxx 2018- P O EDITH Hook [facility] Present [address] [place] [address] documented as of this encounter
--- OUTSIDE RECORDS SUMMARY | 2020-01-08 11:30 | XMS REPORT | Summary of Care ---
Author Author [facility] - Health Organization [facility] - Health Address Unknown Phone Unavailable Care Team Providers Care Collar Stitcher Name Role Phone Pcp, Patient Does Not Have A PCP [phone] Reason for Visit * Reason Comments Refill Request Encounter Details Care Team Description Date Type Department Rg Nation MD [address] [phone] Refill Request 06/16/2019 Refill [facility] Health Interna Medicine- Multispecialty Ctr 2660 [place] [phone] Allergies Comments Active Allergy Reactions Severity Noted [...] ppd; counseled to stop. ICD10 Diagnosis Term Marble Coper Utility Drug dependence, in remission 01/11/2007 Overview: ICD10 Diagnosis Term Marble Coper Utility Alcohol abuse with alcohol-induced disorder 01/12/20 [...] antepartum 09/14/2013 02/11/2014 Overview: ICD10 Diagnosis Term Marble Coper Utility Disorder of thyroid 01/11/2007 01/14/2014 Overview: ICD10 Diagnosis Term Marble Coper Utility Bipolar disorder 01/11/2007 01/14/2014 Overview: ICD10 Diagnosis Term Marble Coper Utility Personal history of other mental disorder 01/11/2007 01/09/2014 ATYPICAL DEPRESSIVE DIS 01/11/2007 01/14/2014 Obesity 01/11/2007 09/14/2013 Overview: ICD10 Diagnosis Term Marble Coper Utility Supervision of other high-risk 01/11/2007 09/14/2013 Overview: ICD10 Diagnosis Term Marble Coper Utility Suicidal ideation 02/03/2006 09/14/2013 Bipolar I [...] Specialty Romy To MD [id number] [place], [place] [id number] 07/03/2019 Office Visit Obstetrics & Gyneco logy [...] ot Implanted Type Area Manufactur er 07/20/2014 [id number] / / [id number] Stent Ureteral Percuflex Plus 6fr STENT Left: Ureter [place] [id number] MD2U Scientific #[id number] - [id number] Implanted: Qty: 1 on 01/31/2014 by Paty Ramirez MD at [facility] documented as of this encounter Results Not on filedocumented in this encounter Visit Diagnoses Diagnosis Essential hypertension Unspecified essential hypertension documented in this encounter Insurance Type Payer Benefit Subscriber ID Effective Phone Address Plan / Dates Group Medicare Adv FFS HUMANA - MANAGED MEDICARE HUMANA [id number] 2017-P MEDICARE resent Medicaid [facility] MEDICAID xxxxxxxxx 2012-P [phone] P O [facility] [id number] [place] [address] documented as of this encounter
--- OUTSIDE RECORDS SUMMARY | 2020-01-08 11:30 | XMS REPORT | Summary of Care ---
Author Author [facility] - Health Organization [facility] - Health Address Unknown Phone Unavailable Care Team Providers Care Clark Driver Name Role Phone Pcp, Patient Does Not Have A PCP Encounter Details Care Team Description Date Type Department Ciro Fernandez MD [address] [place] [address] 10/24/2019 Patient Secure [facility] Gastroenterology- Multispecialty Ctr [address] [place] [phone] Allergies Comments Active Allergy Reactions Severity Noted Date Codeine Nausea and/or 02/03/2006 Vomiting, Rash Throat swelling Penicillins Rash, Unknown 02/03/2006 - See comments documented as of this encounter (statuses as of 10/31/2019) Medications End Date Status Medication Sig Dispensed Refills Start Date Active lisinopril 40 mg Take 1 tablet 90 tablet 0 02 tabletIndications: by mouth 0 Essential hypertension daily. Active zolpidem 5 mg Take 1 tablet 30 tablet 0 tabletIndications: by mouth at 0 Insomnia, unspecified bedtime as type needed for Insomnia. documented as of this encounter (statuses as of 10/31/2019) Active Problems Patient Care Coordination Note Please [...] ppd; counseled to stop. ICD10 Diagnosis Term Coat Ironer Hand Utility Drug dependence, in remission 01/11/2007 Overview: ICD10 Diagnosis Term Coat Ironer Hand Utility Alcohol abuse with alcohol-induced disorder 01/12/20 07 documented as of this encounter (statuses as of 10/31/2019) Resolved Problems Problem Noted Date Resolved Date [...] antepartum 09/14/2013 02/11/2014 Overview: ICD10 Diagnosis Term Coat Ironer Hand Utility Disorder of thyroid 01/11/2007 01/14/2014 Overview: ICD10 Diagnosis Term Coat Ironer Hand Utility Bipolar disorder 01/11/2007 01/14/2014 Overview: ICD10 Diagnosis Term Coat Ironer Hand Utility Personal history of other mental disorder 01/11/2007 01/09/2014 ATYPICAL DEPRESSIVE DIS 01/11/2007 01/14/2014 Obesity 01/11/2007 09/14/2013 Overview: ICD10 Diagnosis Term Coat Ironer Hand Utility Supervision of other high-risk 01/11/2007 09/14/2013 Overview: ICD10 Diagnosis Term Coat Ironer Hand Utility Suicidal ideation 02/03/2006 09/14/2013 Bipolar I disorder, most recent episode (or current) unspec ified 02/03/2006 09/14/2013 documented as of this encounter (statuses as of 10/31/2019) Immunizations Name Administration Dates Next Due HEP [...] Team Description Date Type Specialty Hilda Nelson, [facility] [address] [facility] [address] [place] [address] [phone] 11/27/2019 Office Visit Gastroenterology Health Maintenance Due [...] ot Implanted Type Area Manufactur er 07/20/2014 [id number] / / [id number] Stent Ureteral Percuflex Plus 6fr STENT Left: Ureter [place] [id number] [employer] #[id number] - [id number] Implanted: Qty: 1 on 01/31/2014 by Paty Ramirez MD at [facility] documented as of this encounter Results Not on filedocumented in this encounter Insurance Type Payer Benefit Subscriber ID Effective Phone Address Plan / Dates Group Medicare Adv FFS HUMANA - MANAGED MEDICARE HUMANA [id number] 2017-P MEDICARE resent Medicaid [employer] [place] [employer] xxxxxxxxx 2018- P O EDITH [facility] Present [address] [place] [address] documented as of this encounter
--- OUTSIDE RECORDS SUMMARY | 2020-01-08 11:30 | XMS REPORT | Summary of Care ---
Author Author [facility] - Health Organization [facility] - Health Address Unknown Phone Unavailable Care Team Providers Care Embroidery Specialist Name Role Phone Pcp, Patient Does Not Have A PCP [phone] Reason for Visit * Reason Comments Notification Talk To Nurse Staple Removal Encounter Details Care Team Description Date Type Department Ciro Fernandez MD [facility] [place] [address] [phone] Notification; Talk To Nurse; Staple Juan Carlos alanis 2019 Telephone [facility] Gastroenterology-[facility] Multispecialty Ctr 2660 [place] [phone] Allergies Comments Active Allergy Reactions Severity Noted [...] ppd; counseled to stop. ICD10 Diagnosis Term Compression Molding Machine Operator Utility Drug dependence, in remission 01/11/2007 Overview: ICD10 Diagnosis Term Compression Molding Machine Operator Utility Alcohol abuse with alcohol-induced [...] antepartum 09/14/2013 02/11/2014 Overview: ICD10 Diagnosis Term Compression Molding Machine Operator Utility Disorder of thyroid 01/11/2007 01/14/2014 Overview: ICD10 Diagnosis Term Compression Molding Machine Operator Utility Bipolar disorder 01/11/2007 01/14/2014 Overview: ICD10 Diagnosis Term Compression Molding Machine Operator Utility Personal history of other mental disorder 01/11/2007 01/09/2014 ATYPICAL DEPRESSIVE DIS 01/11/2007 01/14/2014 Obesity 01/11/2007 09/14/2013 Overview: ICD10 Diagnosis Term Compression Molding Machine Operator Utility Supervision of other high-risk 01/11/2007 09/14/2013 Overview: ICD10 Diagnosis Term Compression Molding Machine Operator Utility Suicidal ideation 02/03/2006 09/14/2013 [...] ot Implanted Type Area Manufactur er 07/20/2014 [id number] / / [id number] Stent Ureteral Percuflex Plus 6fr STENT Left: Ureter [place] [id number] [facility] Scientific #[id number] - [id number] Implanted: Qty: 1 on 01/31/2014 by Paty Ramirez MD at [facility] documented as of this encounter Results Not on filedocumented in this encounter Insurance Type Payer Benefit Subscriber ID Effective Phone Address Plan / Dates Group Medicare Adv FFS HUMANA - MANAGED MEDICARE HUMANA [id number] 2017-P MEDICARE resent Medicaid [place] MEDICAID xxxxxxxxx 2012-P [phone] P O [facility] [address] [place] [address] documented as of this encounter
--- OUTSIDE RECORDS SUMMARY | 2020-01-08 11:30 | XMS REPORT | Summary of Care ---
Author Author [facility] - Health Organization [facility] - Health Address Unknown Phone Unavailable Care Team Providers Care State Farm Agent Team Member Name Role Phone Pcp, Patient Does Not Have A PCP [phone] Encounter Details Care Team Description Date Type Department Doctor Unassigned, [place] [address] [place] [address] 10/25/2019 Patient Secure [facility] Transpl ant- [facility] Multispecialty Ctr [address] [facility], [place] [address] Allergies Comments Active Allergy Reactions Severity Noted Date Codeine Nausea and/or 02/03/2006 Vomiting, Rash Throat swelling Penicillins Rash, Unknown 02/03/2006 - See comments documented as of this encounter (statuses as of 10/29/2019) Medications End Date Status Medication Sig Dispensed Refills Start Date Active lisinopril 40 mg Take 1 tablet 90 tablet 0 02 tabletIndications: by mouth 0 Essential hypertension daily. Active zolpidem 5 mg Take 1 tablet 30 tablet 0 tabletIndications: by mouth at 0 Insomnia, unspecified bedtime as type needed for Insomnia. documented as of this encounter (statuses as of 10/29/2019) Active Problems Patient Care Coordination Note Please [...] ppd; counseled to stop. ICD10 Diagnosis Term Brand Lead Utility Drug dependence, in remission 01/11/2007 Overview: ICD10 Diagnosis Term Brand Lead Utility Alcohol abuse with alcohol-induced disorder 01/12/20 07 documented as of this encounter (statuses as of 10/29/2019) Resolved Problems Problem Noted Date Resolved Date [...] antepartum 09/14/2013 02/11/2014 Overview: ICD10 Diagnosis Term Brand Lead Utility Disorder of thyroid 01/11/2007 01/14/2014 Overview: ICD10 Diagnosis Term Brand Lead Utility Bipolar disorder 01/11/2007 01/14/2014 Overview: ICD10 Diagnosis Term Brand Lead Utility Personal history of other mental disorder 01/11/2007 01/09/2014 ATYPICAL DEPRESSIVE DIS 01/11/2007 01/14/2014 Obesity 01/11/2007 09/14/2013 Overview: ICD10 Diagnosis Term Brand Lead Utility Supervision of other high-risk 01/11/2007 09/14/2013 Overview: ICD10 Diagnosis Term Brand Lead Utility Suicidal ideation 02/03/2006 09/14/2013 Bipolar I disorder, most recent episode (or current) unspec ified 02/03/2006 09/14/2013 documented as of this encounter (statuses as of 10/29/2019) Immunizations Name Administration Dates Next Due HEP [...] Team Description Date Type Specialty Hilda Nelson, [facility] [address] [place] [address] [address] [place] [address] [phone] 11/27/2019 Office Visit Gastroenterology Health Maintenance Due [...] ot Implanted Type Area Manufactur er 07/20/2014 [id number] / / [id number] Stent Ureteral Percuflex Plus 6fr STENT Left: Ureter [place] [id number] [employer] #[id number] - [id number] Implanted: Qty: 1 on 01/31/2014 by Paty Ramirez MD at [facility] documented as of this encounter Results Not on filedocumented in this encounter Insurance Type Payer Benefit Subscriber ID Effective Phone Address Plan / Dates Group Medicare Adv FFS HUMANA - MANAGED MEDICARE HUMANA [id number] 2017-P MEDICARE resent Medicaid [employer] [facility] AMERIGROUP xxxxxxxxx 2018- P O EDITH Miladys [facility] Present [address] [place] [address] documented as of this encounter
--- OUTSIDE RECORDS SUMMARY | 2020-01-08 11:30 | XMS REPORT | Summary of Care ---
Author Author [facility] - Health Organization [facility] - Health Address Unknown Phone Unavailable Care Team Providers Care Knife Grinder Name Role Phone Pcp, Patient Does Not Have A PCP [phone] Encounter Details Care Team Description Date Type Department Ciro Fernandez MD [address]60 [place] [address] 07/02/2019 Patient Secure [facility] Gastroenterology- Multispecialty Ctr 2660 [place] [address] Allergies Comments Active Allergy Reactions Severity Noted Date Codeine Nausea and/or 02/03/2006 Vomiting, Rash Throat swelling Penicillins Rash, Unknown 02/03/2006 - See comments documented as of this encounter (statuses as of 08/04/2019) Medications End Date Status Medication Sig Dispensed Refills Start Date Active lisinopril 40 mg Take 1 tablet 90 tablet 3 01 tabletIndications: by mouth 9 Essential hypertension daily. Active zolpidem 5 mg Take 1 tablet 30 tablet 0 tabletIndications: by mouth at 9 Insomnia, unspecified bedtime as type needed for Insomnia. documented as of this encounter (statuses as of 08/04/2019) Active Problems Patient Care Coordination Note Please [...] ppd; counseled to stop. ICD10 Diagnosis Term Rotor Plate Washer Utility Drug dependence, in remission 01/11/2007 Overview: ICD10 Diagnosis Term Rotor Plate Washer Utility Alcohol abuse with alcohol-induced disorder 01/12/20 07 documented as of this encounter (statuses as of 08/04/2019) Resolved Problems Problem Noted Date Resolved Date [...] antepartum 09/14/2013 02/11/2014 Overview: ICD10 Diagnosis Term Rotor Plate Washer Utility Disorder of thyroid 01/11/2007 01/14/2014 Overview: ICD10 Diagnosis Term Rotor Plate Washer Utility Bipolar disorder 01/11/2007 01/14/2014 Overview: ICD10 Diagnosis Term Rotor Plate Washer Utility Personal history of other mental disorder 01/11/2007 01/09/2014 ATYPICAL DEPRESSIVE DIS 01/11/2007 01/14/2014 Obesity 01/11/2007 09/14/2013 Overview: ICD10 Diagnosis Term Rotor Plate Washer Utility Supervision of other high-risk 01/11/2007 09/14/2013 Overview: ICD10 Diagnosis Term Rotor Plate Washer Utility Suicidal ideation 02/03/2006 09/14/2013 Bipolar I disorder, most recent episode (or current) unspec ified 02/03/2006 09/14/2013 documented as of this encounter (statuses as of 08/04/2019) Immunizations Name Administration Dates Next Due HEP [...] ot Implanted Type Area Manufactur er 07/20/2014 [id number] / / [id number] Stent Ureteral Percuflex Plus 6fr STENT Left: Ureter [place] [id number] [employer] #[id number] - [id number] Implanted: Qty: 1 on 01/31/2014 by Paty Ramirez MD at [facility] documented as of this encounter Results Not on filedocumented in this encounter Insurance Type Payer Benefit Subscriber ID Effective Phone Address Plan / Dates Group Medicare Adv FFS HUMANA - MANAGED MEDICARE HUMANA [id number] 2017-P MEDICARE resent Medicaid [employer] [facility] AMERIGROUP xxxxxxxxx 2018- P O EDITH X OF [place] Present [address] [place] [address] Medicaid [id number] MEDICAID xxxxxxxxx 2012-3 [address] /05/2019 [address] [place] [address] documented as of this encounter
--- OUTSIDE RECORDS SUMMARY | 2020-01-08 11:30 | XMS REPORT | Summary of Care ---
Author Author [facility] - Health Organization [facility] - Health Address Unknown Phone Unavailable Care Team Providers Care Insurance Agent Name Role Phone Pcp, Patient Does Not Have A PCP [phone] Encounter Details Care Team Description Date Type Department Ciro Fernandez MD [address] [place], [place] [address] 12/04/2019 Patient Secure [facility] Msg [facility] [address] [facility], [place] [phone] Allergies Comments Active Allergy Reactions Severity Noted [...] ppd; counseled to stop. ICD10 Diagnosis Term Home Office Claim Specialist Utility Drug dependence, in remission 01/11/2007 Overview: ICD10 Diagnosis Term Home Office Claim Specialist Utility Alcohol abuse with alcohol-induced disorder [...] antepartum 09/14/2013 02/11/2014 Overview: ICD10 Diagnosis Term Home Office Claim Specialist Utility Disorder of thyroid 01/11/2007 01/14/2014 Overview: ICD10 Diagnosis Term Home Office Claim Specialist Utility Bipolar disorder 01/11/2007 01/14/2014 Overview: ICD10 Diagnosis Term Home Office Claim Specialist Utility Personal history of other mental disorder 01/11/2007 01/09/2014 ATYPICAL DEPRESSIVE DIS 01/11/2007 01/14/2014 Obesity 01/11/2007 09/14/2013 Overview: ICD10 Diagnosis Term Home Office Claim Specialist Utility Supervision of other high-risk 01/11/2007 09/14/2013 Overview: ICD10 Diagnosis Term Home Office Claim Specialist Utility Suicidal ideation 02/03/2006 09/14/2013 Bipolar [...] Treatment Care Team Description Date Type Specialty Gou, Mathieu Frank MD [address] [place] [address] 12/11/2019 Telemedicine Gastroenterology Visit Health Maintenance [...] ot Implanted Type Area Manufactur er 07/20/2014 [id number] / / [id number] Stent Ureteral Percuflex Plus 6fr STENT Left: Ureter [place] [id number] [employer] #[id number] - [id number] Implanted: Qty: 1 on 01/31/2014 by Paty Ramirez MD at [facility] documented as of this encounter Results Not on filedocumented in this encounter Insurance Type Payer Benefit Subscriber ID Effective Phone Address Plan / Dates Group Medicare Adv HMO [facility] [id number] 2019-P [address] MEDICARE ADVANTAGE GE DUAL resent [id number] [facility] [address] Medicaid [facility] AMER[employer]ROUP xxxxxxxxx 2018- P O EDITH X OF [place] Present [address] [place] [address] documented as of this encounter
--- OUTSIDE RECORDS SUMMARY | 2020-01-08 11:31 | XMS REPORT | Summary of Care ---
Author Author [facility] - Health Organization [facility] - Health Address Unknown Phone Unavailable Care Team Providers Care Candy Butcher Name Role Phone Pcp, Patient Does Not Have A PCP [phone] Encounter Details Care Team Description Date Type Department Doctor Unassigned, [place] [address] [place] [address] 01/03/2020 Orders Only [facility] [address] [place] [address] Allergies Comments Active Allergy Reactions Severity Noted Date Codeine Nausea and/or 02/03/2006 Vomiting, Rash Throat swelling Penicillins Rash, Unknown 02/03/2006 - See comments documented as of this encounter (statuses as of 01/03/2020) Medications End Date Status Medication Sig Dispensed Refills Start Date Active zolpidem 5 mg Take 1 tablet 30 tablet 2 tabletIndications: by mouth at 0 Insomnia, unspecified bedtime as type needed for Insomnia. Active lisinopril 40 mg Take 1 tablet 90 tablet 1 02 tabletIndications: by mouth 0 Essential hypertension daily. Active peg-electrolyte soln Take as 4000 mL 0 12/10 236-22.74-6.74 -5.86 gram directed 0 solutionIndications: before Change in bowel habit colonoscopy Active peg-electrolyte soln Take as 4000 mL 0 12/30 236-22.74-6.74 -5.86 gram directed 0 solution before colonoscopy documented as of this encounter (statuses as of 01/03/2020) Active Problems Patient Care Coordination Note Please obtain Hepatitis panel, LFTs, TSH at Next visit. Thanks Problem Noted Date Incisional hernia, without obstruction or gangrene 0 12/26/2019 Overview: Added automatically from request for oc nagel [id number] Change in bowel habit 12/26/2019 Overview: Added automatically from request for oc nagel [id number] Insomnia 04/26/2018 Status post emergency hysterectomy 02/06/20 14 premature rupture of membranes 02/05/2014 Chorioamnionitis 02/05/2014 Anxiety 02/05/2014 Poor dentition 02/05/2014 Ileus 01/28/2014 Hepatitis C 01/14/2014 Tobacco use disorder complicating , childbir th, or puerperium, 01/11/2007 antepartum Overview: Smokes 1/2 ppd; counseled to stop. ICD10 Diagnosis Term Seed Expert Utility Drug dependence, in remission 01/11/2007 Overview: ICD10 Diagnosis Term Seed Expert Utility Alcohol abuse with alcohol-induced disorder 01/12/20 07 documented as of this encounter (statuses as of 01/03/2020) Resolved Problems Problem Noted Date Resolved Date [...] antepartum 09/14/2013 02/11/2014 Overview: ICD10 Diagnosis Term Seed Expert Utility Disorder of thyroid 01/11/2007 01/14/2014 Overview: ICD10 Diagnosis Term Seed Expert Utility Bipolar disorder 01/11/2007 01/14/2014 Overview: ICD10 Diagnosis Term Seed Expert Utility Personal history of other mental disorder 01/11/2007 01/09/2014 ATYPICAL DEPRESSIVE DIS 01/11/2007 01/14/2014 Obesity 01/11/2007 09/14/2013 Overview: ICD10 Diagnosis Term Seed Expert Utility Supervision of other high-risk 01/11/2007 09/14/2013 Overview: ICD10 Diagnosis Term Seed Expert Utility Suicidal ideation 02/03/2006 09/14/2013 Bipolar I disorder, most recent episode (or current) unspec ified 02/03/2006 09/14/2013 documented as of this encounter (statuses as of 01/03/2020) Immunizations Name Administration Dates Next Due HEP B, Adult Dosage 04/26/2018 Influenza Virus Vaccine 04/26/2018 Quad .5 mL IM 6+ MO Influenza Virus Vaccine 07/06/2017 Quad IM 3+ YRS Rho (d) Immune Globulin 03/27/2018 (Deferred: Brandie nt Refused) Td 07/21/2013 Twinrix (hep a/hep [...] Assigned at Date Recorded Not on file Date Recorded COVID-19 Exposure Response 01/03/2020 10:35 AM CDT In the last month, have you been in contact with No / Unsure someone who was confirmed or suspected to have Coronavirus / COVID-19? documented as of this encounter Last Filed Vital Signs Not on filedocumented in this encounter Plan of Treatment Care Team Description Date Type Specialty GouMathieu MD [address] [place] [address] 02/25/2020 Office Visit Gastroenterology Rg Nation MD [facility] [address] [address] 03/06/2020 Office Visit Internal Medicine Health Maintenance Due Date Last Done Comments PNEUMOCOCCAL 0-64 YEARS 08/04/1979 COMBINED SERIES (1 of 1 - PPSV23) Depression Screening 1985 DTaP,Tdap,and Td Vaccines 1992 07/21/2013 (1 - Tdap) PAP SMEAR 01/10/2010 01/10/2007, 11/02/2004 Breast Cancer Screening 2013 (MAMMOGRAM) INFLUENZA VACCINE (#1) 2020 04/26/2018, 07/06/2017 Colorectal Cancer 08/04/2023 Screening documented as of this encounter Implants Device Identifier Shelf Expiration Date Model / Serial / L ot Implanted Type Area Manufactur er 07/20/2014 [id number] / / [id number] Stent Ureteral Percuflex Plus 6fr STENT Left: Ureter [place] [id number] Given.to #[id number] - [id number] Implanted: Qty: 1 on 01/31/2014 by Paty Ramirez MD at [facility] documented as of this encounter Procedures Comments Procedure Name Priority Date/Time Associated Diag nosis ASSIGNMENT OF BENEFITS Routine 01/03/2020 10:36 AM CDT documented in this encounter Results Not on filedocumented in this encounter Insurance Type Payer Benefit Subscriber ID Effective Phone Address Plan / Dates Group Medicare Adv HMO [facility] AMERIVANTA [id number] 2019-P [address] MEDICARE ADVANTAGE GE DUAL resent [id number] [facility] ON HMO [facility] [address] Medicaid [facility] [id number] 2018- P O EDITH X OF [place] Present [address] [place] [address] documented as of this encounter
--- OUTSIDE RECORDS SUMMARY | 2020-01-08 11:31 | XMS REPORT | Summary of Care ---
Author Author [facility] - Health Organization [facility] - Health Address Unknown Phone Unavailable Care Team Providers Care Denture Technician Name Role Phone Pcp, Patient Does Not Have A PCP [phone] Encounter Details Care Team Description Date Type Department Doctor Unassigned, [place] [address] [place] [address] 12/11/2019 Orders Only [facility] [address] [place] [address] Allergies Comments Active Allergy Reactions Severity Noted Date Codeine Nausea and/or 02/03/2006 Vomiting, Rash Throat swelling Penicillins Rash, Unknown 02/03/2006 - See comments documented as of this encounter (statuses as of 12/13/2019) Medications End Date Status Medication Sig Dispensed [...] solutionIndications: before Change in bowel habit colonoscopy documented as of this encounter (statuses as of 12/13/2019) Active Problems Patient Care Coordination Note Please [...] ppd; counseled to stop. ICD10 Diagnosis Term Slag Wheeler Utility Drug dependence, in remission 01/11/2007 Overview: ICD10 Diagnosis Term Slag Wheeler Utility Alcohol abuse with alcohol-induced disorder 01/12/20 documented as of this encounter (statuses as of 12/13/2019) Resolved Problems Problem Noted Date Resolved Date [...] antepartum 09/14/2013 02/11/2014 Overview: ICD10 Diagnosis Term Slag Wheeler Utility Disorder of thyroid 01/11/2007 01/14/2014 Overview: ICD10 Diagnosis Term Slag Wheeler Utility Bipolar disorder 01/11/2007 01/14/2014 Overview: ICD10 Diagnosis Term Slag Wheeler Utility Personal history of other mental disorder 01/11/2007 01/09/2014 ATYPICAL DEPRESSIVE DIS 01/11/2007 01/14/2014 Obesity 01/11/2007 09/14/2013 Overview: ICD10 Diagnosis Term Slag Wheeler Utility Supervision of other high-risk 01/11/2007 09/14/2013 Overview: ICD10 Diagnosis Term Slag Wheeler Utility Suicidal ideation 02/03/2006 09/14/2013 Bipolar I disorder, most recent episode (or current) unspec ified 02/03/2006 09/14/2013 documented as of this encounter (statuses as of 12/13/2019) Immunizations Name Administration Dates Next Due HEP [...] Treatment Care Team Description Date Type Specialty Mathieu Carter MD [address] [place] [address] 155235 Vls-Lab 12/13/2019 Election Supervisor Phlebotomy Visit Mihaela Leon MD [address] [place] [address]. [place] [phone] 12/14/2019 Office Visit Surgery Mathieu Carter MD [address] [place] [address] [phone] 02/25/2020 Office Visit Gastroenterology Rg Nation MD [address] [phone] 03/06/2020 Office Visit Internal Medicine [...] ot Implanted Type Area Manufactur er 07/20/2014 [id number] / / [id number] Stent Ureteral Percuflex Plus 6fr STENT Left: Ureter [place] [id number] [employer] #[id number] - [id number] Implanted: Qty: 1 on 01/31/2014 by Paty Ramirez MD at [facility] documented as of this encounter Procedures Comments Procedure Name Priority Date/Time Associated Diag nosis AUTHORIZATION TO RELEASE Routine 12/11/2019 PHI TO [facility] 12:01 AM CDT documented in this encounter Results Not on filedocumented in this encounter Insurance Type Payer Benefit Subscriber ID Effective Phone Address Plan / Dates Group Medicare Adv HMO [facility] AMERIVANTA [id number] 2019-P [address] MEDICARE ADVANTAGE GE DUAL resent [id number] [facility] ON O [facility] [address] Medicaid [facility] xxxxxxxxx 2018- P O EDITH X OF [place] Present [address] [place] [address] documented as of this encounter
--- OUTSIDE RECORDS SUMMARY | 2020-01-08 11:31 | XMS REPORT | Summary of Care ---
Author Author [facility] - Health Organization [facility] - Health Address Unknown Phone Unavailable Care Team Providers Care Vp Of Global Marketing Name Role Phone Pcp, Patient Does Not Have A PCP [phone] Reason for Visit * Reason Comments Medical Records Encounter Details Care Team Description Date Type Department Mathieu Carter MD [address] [place] [address] Medical Records 12/14/2019 Telephone [facility] GASTROENTEROLOGY [address] [address] Allergies Comments Active Allergy Reactions Severity Noted Date Codeine Nausea and/or 02/03/2006 Vomiting, Rash Throat swelling Penicillins Rash, Unknown 02/03/2006 - See comments documented as of this encounter (statuses as of 12/18/2019) Medications End Date Status Medication Sig Dispensed [...] as of this encounter (statuses as of 12/18/2019) Active Problems Patient Care Coordination Note Please [...] ppd; counseled to stop. ICD10 Diagnosis Term Fabrication Supervisor Utility Drug dependence, in remission 01/11/2007 Overview: ICD10 Diagnosis Term Fabrication Supervisor Utility Alcohol abuse with alcohol-induced disorder 01/12/20 07 documented as of this encounter (statuses as of 12/18/2019) Resolved Problems Problem Noted Date Resolved Date [...] antepartum 09/14/2013 02/11/2014 Overview: ICD10 Diagnosis Term Fabrication Supervisor Utility Disorder of thyroid 01/11/2007 01/14/2014 Overview: ICD10 Diagnosis Term Fabrication Supervisor Utility Bipolar disorder 01/11/2007 01/14/2014 Overview: ICD10 Diagnosis Term Fabrication Supervisor Utility Personal history of other mental disorder 01/11/2007 01/09/2014 ATYPICAL DEPRESSIVE DIS 01/11/2007 01/14/2014 Obesity 01/11/2007 09/14/2013 Overview: ICD10 Diagnosis Term Fabrication Supervisor Utility Supervision of other high-risk 01/11/2007 09/14/2013 Overview: ICD10 Diagnosis Term Fabrication Supervisor Utility Suicidal ideation 02/03/2006 09/14/2013 Bipolar I disorder, most recent episode (or current) unspec ified 02/03/2006 09/14/2013 documented as of this encounter (statuses as of 12/18/2019) Immunizations Name Administration Dates Next Due HEP [...] Travel Start No recent travel history available. Date Recorded COVID-19 Exposure Response 12/14/2019 9:58 AM CDT In the last month, have you been in contact with No / Unsure someone who was confirmed or suspected to have Coronavirus / COVID-19? documented as of this encounter Last Filed Vital Signs Not on filedocumented in this encounter Plan of Treatment Care Team Description Date Type Specialty Gou, Mathieu Frank MD [address] [place] [address] [phone] 02/25/2020 Office Visit Gastroenterology Rg Nation MD [address] [phone] 03/06/2020 Office Visit Internal Medicine [...] ot Implanted Type Area Manufactur er 07/20/2014 [id number] / / [id number] Stent Ureteral Percuflex Plus 6fr STENT Left: Ureter [place] [id number] [employer] #[id number] - [id number] Implanted: Qty: 1 on 01/31/2014 by Paty Ramirez MD at [facility] documented as of this encounter Results Not on filedocumented in this encounter Insurance Type Payer Benefit Subscriber ID Effective Phone Address Plan / Dates Group Medicare Adv O [facility] AMERIVANTA [id number] 2019-P [address] MEDICARE ADVANTAGE GE DUAL resent [id number] [facility] [address] Medicaid [facility] xxxxxxxxx 2018- P O EDITH X OF [place] Present [address] [place] [address] documented as of this encounter
--- OUTSIDE RECORDS SUMMARY | 2020-01-08 11:31 | XMS REPORT | Summary of Care ---
Author Author [facility] - Health Organization [facility] - Health Address Unknown Phone Unavailable Care Team Providers Care Nuclear Radiologist Name Role Phone Pcp, Patient Does Not Have A PCP [phone] Reason for Visit * Reason Comments Erroneous left without being seen encounter-disregard * (Routine) Referred By Contact Referred To Contact Status Reason Specialty Diagnoses / Procedures Mathieu Carter MD [address] [place] [address] Closed Surgery Diagnoses Incisional hernia, without obstruction or gangrene P rocedures CONSULT/REFERRAL GENERAL SURGERY Encounter Details Care Team Description Date Type Department Mihaela Leon MD [address] [place] [address]. [place] [address] ERRONEOUS ENCOUNTER--DISREGARD (Primary Dx) 12/14/2019 Office Visit [facility] General Surgery[address] [phone] Allergies Comments Active Allergy Reactions Severity Noted Date Codeine Nausea and/or 02/03/2006 Vomiting, Rash Throat swelling Penicillins Rash, Unknown 02/03/2006 - See comments documented as of this encounter (statuses as of 12/17/2019) Medications End Date Status Medication Sig Dispensed [...] as of this encounter (statuses as of 12/17/2019) Active Problems Patient Care Coordination Note Please [...] ppd; counseled to stop. ICD10 Diagnosis Term Paid Search Manager Utility Drug dependence, in remission 01/11/2007 Overview: ICD10 Diagnosis Term Paid Search Manager Utility Alcohol abuse with alcohol-induced disorder 01/12/20 07 documented as of this encounter (statuses as of 12/17/2019) Resolved Problems Problem Noted Date Resolved Date [...] antepartum 09/14/2013 02/11/2014 Overview: ICD10 Diagnosis Term Paid Search Manager Utility Disorder of thyroid 01/11/2007 01/14/2014 Overview: ICD10 Diagnosis Term Paid Search Manager Utility Bipolar disorder 01/11/2007 01/14/2014 Overview: ICD10 Diagnosis Term Paid Search Manager Utility Personal history of other mental disorder 01/11/2007 01/09/2014 ATYPICAL DEPRESSIVE DIS 01/11/2007 01/14/2014 Obesity 01/11/2007 09/14/2013 Overview: ICD10 Diagnosis Term Paid Search Manager Utility Supervision of other high-risk 01/11/2007 09/14/2013 Overview: ICD10 Diagnosis Term Paid Search Manager Utility Suicidal ideation 02/03/2006 09/14/2013 Bipolar I disorder, most recent episode (or current) unspec ified 02/03/2006 09/14/2013 documented as of this encounter (statuses as of 12/17/2019) Immunizations Name Administration Dates Next Due HEP [...] Signs Reading Time Taken Comments Vital Sign 155/67 12/14/2019 11:25 AM CDT Blood Pressure 70 12/14/2019 11:25 AM CDT Pulse 36.6 C (97.8 F) 12/14/2019 11:25 AM CDT Temperature 18 12/14/2019 11:25 AM CDT Respiratory Rate 99% 12/14/2019 11:25 AM CDT Oxygen Saturation - - Inhaled Oxygen Concentration - - Weight - - Height - - Body Mass Index documented in this encounter Patient Instructions * Patient Instructions* Melinda Barriga, KELSEY - 12/14/2019 10:15 AM CDT Erroneous encounter-patient left without being seen documented in this encounter Progress Notes * Raquel Yoo RN - 12/14/2019 10:15 AM CDT Per resident, patient left clinic because she was "tired of waiting." Patient's appointment was scheduled for 1015. Patient checked in at 0952 and was in exam room at 1000. Resident went in to speak with patient [phone]. Patient left around 1010 because she "was tired of waiting." Raquel Yoo RN 12/14/2019 2:46 PM * Nini Mejía MA - 12/14/2019 10:15 AM CDT Parish Golden is a 44 year old female new consult for abdominal pain she i s alert and ambulatory documented in this encounter Plan of Treatment Care Team Description Date Type Specialty GouMathieu MD [address] [place] [address] [phone] 02/25/2020 Office Visit Gastroenterology Rg Nation MD [address] [place] [phone] 03/06/2020 Office Visit Internal Medicine Health Maintenance [...] ot Implanted Type Area Manufactur er 07/20/2014 [id number] / / [id number] Stent Ureteral Percuflex Plus 6fr STENT Left: Ureter [place] [id number] eSilicon Scientific #[id number] - [id number] Implanted: Qty: 1 on 01/31/2014 by Paty Ramirez MD at [facility] documented as of this encounter Results Not on filedocumented in this encounter Visit Diagnoses Diagnosis ERRONEOUS ENCOUNTER--DISREGARD - Primar y documented in this encounter Insurance Type Payer Benefit Subscriber ID Effective Phone Address Plan / Dates Group Medicare Adv HMO [facility] AMERIVANTA [id number] 2019-P [address] MEDICARE ADVANTAGE GE DUAL resent [id number] [place] [address] ON [address] [facility] [address] Medicaid [facility] xxxxxxxxx 2018- P O EDITH X OF [place] Present [id number] [place] [phone] documented as of this encounter
--- OUTSIDE RECORDS SUMMARY | 2020-01-08 11:31 | XMS REPORT | Summary of Care ---
Author Author [facility] - Health Organization [facility] - Health Address Unknown Phone Unavailable Care Team Providers Care Collection Correspondent Name Role Phone Pcp, Patient Does Not Have A PCP [phone] Reason for Visit * Reason Comments Medical Records Encounter Details Care Team Description Date Type Department Mathieu Carter MD [address] [place] [address] Medical Records 12/14/2019 Telephone [facility] GASTROENTEROLOGY [address] [phone] Allergies Comments Active Allergy Reactions [...] counseled to stop. ICD10 Diagnosis Term Clinical Exercise Physiologist Utility Drug dependence, in remission 01/11/2007 Overview: ICD10 Diagnosis Term Clinical Exercise Physiologist Utility Alcohol abuse with alcohol-induced disorder 01/12/20 [...] 09/14/2013 02/11/2014 Overview: ICD10 Diagnosis Term Clinical Exercise Physiologist Utility Disorder of thyroid 01/11/2007 01/14/2014 Overview: ICD10 Diagnosis Term Clinical Exercise Physiologist Utility Bipolar disorder 01/11/2007 01/14/2014 Overview: ICD10 Diagnosis Term Clinical Exercise Physiologist Utility Personal history of other mental disorder 01/11/2007 01/09/2014 ATYPICAL DEPRESSIVE DIS 01/11/2007 01/14/2014 Obesity 01/11/2007 09/14/2013 Overview: ICD10 Diagnosis Term Clinical Exercise Physiologist Utility Supervision of other high-risk 01/11/2007 09/14/2013 Overview: ICD10 Diagnosis Term Clinical Exercise Physiologist Utility Suicidal ideation 02/03/2006 09/14/2013 Bipolar I [...] Date Type Specialty Gou, Mathieu Frank MD [address] [place] [address] [phone] 02/25/2020 Office Visit Gastroenterology Rg Nation MD [address] [phone] 03/06/2020 Office Visit Internal Medicine [...] ot Implanted Type Area Manufactur er 07/20/2014 [id number] / / [id number] Stent Ureteral Percuflex Plus 6fr STENT Left: Ureter [place] [id number] Relative.ai #[id number] - [id number] Implanted: Qty: 1 on 01/31/2014 by Paty Ramirez MD at [facility] documented as of this encounter Results Not on filedocumented in this encounter Insurance Type Payer Benefit Subscriber ID Effective Phone Address Plan / Dates Group Medicare Adv O [employer] [facility] AMERIVANTA [id number] 2019-P P[address]X MEDICARE ADVANTAGE GE DUAL resent [id number] [facility] [phone] [facility] AMERIGROUP xxxxxxxxx 2018- P O EDITH X OF [place] Present [address] [place] [address] documented as of this encounter
--- OUTSIDE RECORDS SUMMARY | 2020-01-08 11:31 | XMS REPORT | Summary of Care ---
Author Author [facility] - Health Organization [facility] - Health Address Unknown Phone Unavailable Care Team Providers Care Senior Tax Analyst Name Role Phone Pcp, Patient Does Not Have A PCP [phone] Reason for Visit * Reason Comments Procedure Encounter Details Care Team Description Date Type Department Mathieu Carter MD [address] [place] [address] Procedure 12/31/2019 Case Management GI Endoscopy OR Department [address] [place] [phone] Allergies Comments Active Allergy Reactions Severity Noted Date Codeine Nausea and/or 02/03/2006 Vomiting, Rash Throat swelling Penicillins Rash, Unknown 02/03/2006 - See comments documented as of this encounter (statuses as of 12/31/2019) Medications End Date Status Medication Sig Dispensed [...] as of this encounter (statuses as of 12/31/2019) Active Problems Patient Care Coordination Note Please obtain Hepatitis panel, LFTs, TSH at Next visit. Thanks Problem Noted Date Incisional hernia, without obstruction or gangrene 0 12/26/2019 Overview: Added automatically from request for oc nagel [id number] Change in bowel habit 12/26/2019 Overview: Added automatically from request for renae shona [id number] Insomnia 04/26/2018 Status post emergency hysterectomy 02/06/20 14 premature rupture of membranes 02/05/2014 Chorioamnionitis 02/05/2014 Anxiety 02/05/2014 Poor dentition 02/05/2014 Ileus 01/28/2014 Hepatitis C 01/14/2014 Tobacco use disorder complicating , childbir th, or puerperium, 01/11/2007 antepartum Overview: Smokes 1/2 ppd; counseled to stop. ICD10 Diagnosis Term Class A Truck Driver Utility Drug dependence, in remission 01/11/2007 Overview: ICD10 Diagnosis Term Class A Truck Driver Utility Alcohol abuse with alcohol-induced disorder 01/12/20 07 documented as of this encounter (statuses as of 12/31/2019) Resolved Problems Problem Noted Date Resolved Date Chorioamnionitis 01/29/2014 02/02/2014 Bladder injury 01/29/2014 02/11/2014 Abdominal distension 01/28/2014 01/29/2014 premature rupture of membranes 01/14/2014 01/29/2014 Positive blood culture 01/14/2014 02/11/2014 Chronic hypertension in 01/14/201401/22 Placenta previa 01/14/2014 01/29/2014 Overview: Cannot rule out accreta premature rupture of membranes (PPROM) delivered, odell urrent 01/12/2014 01/14/2014 hospitalization Labor and delivery [...] antepartum 09/14/2013 02/11/2014 Overview: ICD10 Diagnosis Term Class A Truck Driver Utility Disorder of thyroid 01/11/2007 01/14/2014 Overview: ICD10 Diagnosis Term Class A Truck Driver Utility Bipolar disorder 01/11/2007 01/14/2014 Overview: ICD10 Diagnosis Term Class A Truck Driver Utility Personal history of other mental disorder 01/11/2007 01/09/2014 ATYPICAL DEPRESSIVE DIS 01/11/2007 01/14/2014 Obesity 01/11/2007 09/14/2013 Overview: ICD10 Diagnosis Term Class A Truck Driver Utility Supervision of other high-risk 01/11/2007 09/14/2013 Overview: ICD10 Diagnosis Term Class A Truck Driver Utility Suicidal ideation 02/03/2006 09/14/2013 Bipolar I disorder, most recent episode (or current) unspec ified 02/03/2006 09/14/2013 documented as of this encounter (statuses as of 12/31/2019) Immunizations Name Administration Dates Next Due HEP [...] on file Date Recorded COVID-19 Exposure Response 12/27/2019 3:36 PM CDT In the last month, have you been in contact with Amelie ble to assess someone who was confirmed or suspected to have Coronavirus / COVID-19? documented as of this encounter Last Filed Vital Signs Not on filedocumented in this encounter Plan of Treatment Care Team Description Date Type Specialty Only, Lcc Test 01/01/2020 Laboratory Only Phlebotomy Mathieu Carter MD [address] [place] [address] Incisional hernia, without obstruction o r gangrene 01/03/2020 Hospital Surgery Encounter Sarah Tripp RN [address] [place] [address] 01/03/2020 Anesthesia Surgery Event Mathieu Carter MD [address] [place] [address] [phone] COLONOSCOPY 01/03/2020 Surgery Surgery GouMathieu MD [address] [place], [place] [id number] 02/25/2020 Office Visit Gastroenterology Rg Nation MD [address] [phone] 03/06/2020 Office Visit Internal Medicine Order Schedule Name Type Priority Associated Diag noses Expected: 12/31/2019, Expires: 0 COVID-19 (ID NOW RAPID LAB Routine Preop t esting TESTING) Health Maintenance Due Date Last Done Comments [...] ot Implanted Type Area Manufactur er 07/20/2014 [id number] / / [id number] Stent Ureteral Percuflex Plus 6fr STENT Left: Ureter [place] [id number] PhotoThera #[id number] - [id number] Implanted: Qty: 1 on 01/31/2014 by Paty Ramirez MD at [facility] documented as of this encounter Results Not on filedocumented in this encounter Visit Diagnoses Diagnosis Incisional hernia, without obstruction or gangrene Incisional hernia without mention of ob struction or gangrene Change in bowel habit Preop testing - Primary Preoperative examination, unspecified Incisional hernia, without obstruction or gangrene Incisional hernia without mention of ob struction or gangrene Change in bowel habit documented in this encounter Insurance Type Payer Benefit Subscriber ID Effective Phone Address Plan / Dates Group Medicare Adv HMO [facility] [employer] [id number] 2019-P [address] MEDICARE ADVANTAGE GE DUAL resent [id number] [facility] ON O [facility] [id number] Medicaid [facility] [employer] [id number] 2018- P O EDITH [place] OF [place] Present [address] [place] [address] documented as of this encounter
--- OUTSIDE RECORDS SUMMARY | 2020-01-08 11:31 | XMS REPORT | Summary of Care ---
Author Author [facility] - Health Organization [facility] - Health Address Unknown Phone Unavailable Care Team Providers Care Newspaper Photojournalist Name Role Phone Pcp, Patient Does Not Have A PCP [phone] Reason for Visit * Reason Comments Refill Request Encounter Details Care Team Description Date Type Department Rg Nation MD [address] [phone] Refill Request 12/04/2019 Refill [facility] Health Interna l Medicine- Mult[facility]pecialty Ctr 26[address] [facility], [place] [address] Allergies Comments Active Allergy Reactions [...] ppd; counseled to stop. ICD10 Diagnosis Term Data Center Manager Utility Drug dependence, in remission 01/11/2007 Overview: ICD10 Diagnosis Term Data Center Manager Utility Alcohol abuse with alcohol-induced disorder [...] antepartum 09/14/2013 02/11/2014 Overview: ICD10 Diagnosis Term Data Center Manager Utility Disorder of thyroid 01/11/2007 01/14/2014 Overview: ICD10 Diagnosis Term Data Center Manager Utility Bipolar disorder 01/11/2007 01/14/2014 Overview: ICD10 Diagnosis Term Data Center Manager Utility Personal history of other mental disorder 01/11/2007 01/09/2014 ATYPICAL DEPRESSIVE DIS 01/11/2007 01/14/2014 Obesity 01/11/2007 09/14/2013 Overview: ICD10 Diagnosis Term Data Center Manager Utility Supervision of other high-risk 01/11/2007 09/14/2013 Overview: ICD10 Diagnosis Term Data Center Manager Utility Suicidal ideation 02/03/2006 09/14/2013 Bipolar [...] Team Description Date Type Specialty GouMathieu MD [address] [place] [address] 12/11/2019 Telemedicine Gastroenterology Visit Health Maintenance [...] ot Implanted Type Area Manufactur er 07/20/2014 [id number] / / [id number] Stent Ureteral Percuflex Plus 6fr STENT Left: Ureter [place] [id number] [employer] #[id number] - [id number] Implanted: Qty: 1 on 01/31/2014 by Paty Ramirez MD at [facility] documented as of this encounter Results Not on filedocumented in this encounter Visit Diagnoses Diagnosis Insomnia, unspecified type documented in this encounter Insurance Type Payer Benefit Subscriber ID Effective Phone Address Plan / Dates Group Medicare Adv HMO [facility]A [id number] 2019-P [address] MEDICARE ADVANTAGE GE DUAL [facility] [id number] [facility] [address] Medicaid [facility] [employer] xxxxxxxxx 2018- P O EDITH X OF [place] Present [address] [place] [address] documented as of this encounter
--- OUTSIDE RECORDS SUMMARY | 2020-01-08 11:31 | XMS REPORT | Summary of Care ---
Author Author [facility] - Health Organization [facility] - Health Address Unknown Phone Unavailable Care Team Providers Care Shade Bander Name Role Phone Pcp, Patient Does Not Have A PCP [phone] Reason for Visit * Reason Comments Hypertension INSOMNIA Encounter Details Care Team Description Date Type Department Rg Nation MD [address] [place] [phone] Essential hypertension (Primary Dx); Insomnia, unspecified type 12/06/2019 Telemedicine [facility] Health Interna l Visit Medicine- Multispecialty Ctr [address] [place] [address], [place] [address] Allergies Comments Active Allergy Reactions Severity Noted Date Codeine Nausea and/or 02/03/2006 Vomiting, Rash Throat swelling Penicillins Rash, Unknown 02/03/2006 - See comments documented as of this encounter (statuses as of 12/06/2019) Medications End Date Status Medication Sig Dispensed Refills Start Date Active zolpidem 5 mg Take 1 tablet 30 tablet 2 tabletIndications: by mouth at 0 Insomnia, unspecified bedtime as type needed for Insomnia. Active lisinopril 40 mg Take 1 tablet 90 tablet 1 02 tabletIndications: by mouth 0 Essential hypertension daily. 12/06/2019 Discontinued (Reorder) lisinopril 40 mg Take 1 tablet 90 tablet 0 02 tabletIndications: by mouth 0 Essential hypertension daily. 12/06/2019 Discontinued (Reorder) zolpidem 5 mg Take 1 tablet 30 tablet 0 tabletIndications: by mouth at 0 Insomnia, unspecified bedtime as type needed for Insomnia. documented as of this encounter (statuses as of 12/06/2019) Active Problems Patient Care Coordination Note Please [...] ppd; counseled to stop. ICD10 Diagnosis Term Creative Arts Therapist Utility Drug dependence, in remission 01/11/2007 Overview: ICD10 Diagnosis Term Creative Arts Therapist Utility Alcohol abuse with alcohol-induced disorder 01/12/20 07 documented as of this encounter (statuses as of 12/06/2019) Resolved Problems Problem Noted Date Resolved Date [...] antepartum 09/14/2013 02/11/2014 Overview: ICD10 Diagnosis Term Creative Arts Therapist Utility Disorder of thyroid 01/11/2007 01/14/2014 Overview: ICD10 Diagnosis Term Creative Arts Therapist Utility Bipolar disorder 01/11/2007 01/14/2014 Overview: ICD10 Diagnosis Term Creative Arts Therapist Utility Personal history of other mental disorder 01/11/2007 01/09/2014 ATYPICAL DEPRESSIVE DIS 01/11/2007 01/14/2014 Obesity 01/11/2007 09/14/2013 Overview: ICD10 Diagnosis Term Creative Arts Therapist Utility Supervision of other high-risk 01/11/2007 09/14/2013 Overview: ICD10 Diagnosis Term Creative Arts Therapist Utility Suicidal ideation 02/03/2006 09/14/2013 Bipolar I disorder, most recent episode (or current) unspec ified 02/03/2006 09/14/2013 documented as of this encounter (statuses as of 12/06/2019) Immunizations Name Administration Dates Next Due HEP [...] filedocumented in this encounter Progress Notes * Rg Nation MD - 12/06/2019 10:45 AM CDT Internal Medicine Telemedicine Clinic Note Location of Patient: Home Location or Provider: [facility] Date of Service: 12/06/2019 Chief Complaint: Hypertension, insomnia HPI: Parish Golden is a 44 year old female who has given verbal consent fo r a telemedicine encounter today. Telemedicine encounter conducted due to the [place] VID-19 pandemic. ID was confirmed by Name. Today's telemedicine encounter was co nducted via video (audio and video) encounter. Ms. Golden was scheduled for a follow up appointment. Her last appointment in this clinic was on 04/26/18. She reports no changes in her medications. She is on several medications prescri bed by her psychiatrist david are not on our medication list. She reports continuing compliance with lisinopril. She does not regularly check her blood pressure. She is continuing to use zolpidem for insomnia and she states that it is working well. She reports frequent headaches. She currently take OTC medication for this. ROS: Review of Systems Constitutional: Negative. HENT: Negative. Eyes: Negative. Respiratory: Negative. Cardiovascular: Negative. Gastrointestinal: Negative. Genitourinary: Negative. Musculoskeletal: Negative. Skin: Negative. Neurological: Positive for headaches. Psychiatric/Behavioral: Negative. Endocrine: Endocrine negative Medications: Current Outpatient Medications Medication Sig Dispense Refill lisinopril 40 mg tablet Take 1 tablet by mouth daily. 90 tablet 1 zolpidem 5 mg tablet Take 1 tablet by mouth at bedtime as needed for Insomni a. 30 tablet 2 No current facility-administered medications for this visit. Past Medical Hx: Past Medical History: Diagnosis Date Bipolar disorder, [...] essential hypertension Unspecified hearing loss Right ear Physical Exam: A physical exam was not conducted during this telemedicine encoun ter, however upon verbal evaluation the following was noted: Constitutional: Alert and in no distress Resp: Breathing comfortably Neuro: answers questions appropriately Psych: mood/ affect normal ASSESSMENT/PLAN Parish Golden is a 44 year old female with PMH as above presenting with: 1. Insomnia, unspecified type - zolpidem 5 mg tablet; Take 1 tablet by mouth at bedtime as needed for Insomnia . Dispense: 30 tablet; Refill: 2 2. Essential hypertension - lisinopril 40 mg tablet; Take 1 tablet by mouth daily. Dispense: 90 tablet; R efill: 1 Follow up in 3-4 months. Video encounter: A total of 25 minutes were spent on this encounter which includ es time spent with the patient, chart review, ordering tests/ referrals, and doc umentation. Rg Nation MD 12/06/2019 11:06 PM documented in this encounter Plan of Treatment Care Team Description Date Type Specialty Gou, Mathieu Frank MD [address] [place] [address] [phone] 12/11/2019 Telemedicine Gastroenterology Visit Rg Nation MD [address] [phone] 03/06/2020 Office Visit Internal Medicine Health Maintenance [...] ot Implanted Type Area Manufactur er 07/20/2014 [id number] / / [id number] Stent Ureteral Percuflex Plus 6fr STENT Left: Ureter [place] [id number] [place]...Exactly Scientific #[id number] - [id number] Implanted: Qty: 1 on 01/31/2014 by Paty Ramirez MD at [facility] documented as of this encounter Results Not on filedocumented in this encounter Visit Diagnoses Diagnosis Essential hypertension - Primary Unspecified essential hypertension Insomnia, unspecified type documented in this encounter Insurance Type Payer Benefit Subscriber ID Effective Phone Address Plan / Dates Group Medicare Adv HMO [facility] [id number] 2019-P [address] MEDICARE ADVANTAGE GE DUAL resent [id number] [facility] ON O [facility] [address] Medicaid [employer] [place] [employer] xxxxxxxxx 2018- P O ED[place] Present [address] [place] [address] (Home) [place], [place] [address] documented as of this encounter
--- OUTSIDE RECORDS SUMMARY | 2020-01-08 11:31 | XMS REPORT | Continuity of Care Document ---
Author Author [facility] t Organization [facility] Address [address] [place] [address] Phone Unavailable Care Team Providers Care Commissary Worker Name Role Phone Ronnie Nation MD Attphys Monika Carter MD Attphys Doctor Unassigned, Name No Attphys Unavailable Only, Test Lcc Attphys Unavailable Monika Carter MD Admphys Payers Payer Name Policy Type Policy Number Effective Date Expiration Date S ource Problems This patient has no known problems. Allergies, Adverse Reactions, Alerts Allergy Name Allergy Type Status Severity Reaction(s) Onset Date Inacti ve Date Treating Clinician Comments Source Penicillins DA Active U 2018-04-24 00:00:00 [facility] Penicillins DA Active U 2016-10-06 00:00:00 [facility] Medications This patient has no known medications. Procedures This patient has no known procedures. Encounters Start Date/Time End Date/Time Encounter Type Admission Type Att[facility] Facility Care Department Encounter ID Source 2020-01-06 00:00:00 2020-01-06 00:00:00 [facility] [id number] 2020-01-05 00:00:00 2020-01-05 00:00:00 Rg Bustillo [facility] [id number] 2020-01-03 10:35:00 2020-01-03 14:52:00 Hospital Encounter Mathieu Carter [facility] ([facility]) [id number] 2020-01-03 00:00:00 2020-01-03 00:00:00 Orders Only D hansel Unassigned, [place] [facility] [id number] 2020-01-01 09:28:40 2020-01-01 09:43:40 Laboratory Only On ly, [facility] Test [facility] [id number] 2017-02-14 00:00:00 2017-02-15 00:00:00 [facility] [id number] [facility] Office Results This patient has no known results.
--- OUTSIDE RECORDS SUMMARY | 2020-01-08 11:31 | XMS REPORT | Summary of Care ---
Author Author [facility] - Health Organization [facility] - Health Address Unknown Phone Unavailable Care Team Providers Care Internet Sales Representative Name Role Phone Pcp, Patient Does Not Have A PCP [phone] Reason for Visit * Reason Comments Erroneous left without being seen encounter-disregard * (Routine) Referred By Contact Referred To Contact Status Reason Specialty Diagnoses / Procedures Mathieu Carter MD [address] [place] [address] Closed Surgery Diagnoses Incisional hernia, without obstruction or gangrene P rocedures CONSULT/REFERRAL GENERAL SURGERY Encounter Details Care Team Description Date Type Department Mihaela Leon MD [address] [place] [address]. [place] [address] ERRONEOUS ENCOUNTER--DISREGARD (Primary Dx) 12/14/2019 Office Visit [facility] General Surgery[address] [phone] Allergies Comments Active Allergy Reactions Severity Noted [...] ppd; counseled to stop. ICD10 Diagnosis Term Hub Inventory Specialist Utility Drug dependence, in remission 01/11/2007 Overview: ICD10 Diagnosis Term Hub Inventory Specialist Utility Alcohol abuse with alcohol-induced disorder [...] antepartum 09/14/2013 02/11/2014 Overview: ICD10 Diagnosis Term Hub Inventory Specialist Utility Disorder of thyroid 01/11/2007 01/14/2014 Overview: ICD10 Diagnosis Term Hub Inventory Specialist Utility Bipolar disorder 01/11/2007 01/14/2014 Overview: ICD10 Diagnosis Term Hub Inventory Specialist Utility Personal history of other mental disorder 01/11/2007 01/09/2014 ATYPICAL DEPRESSIVE DIS 01/11/2007 01/14/2014 Obesity 01/11/2007 09/14/2013 Overview: ICD10 Diagnosis Term Hub Inventory Specialist Utility Supervision of other high-risk 01/11/2007 09/14/2013 Overview: ICD10 Diagnosis Term Hub Inventory Specialist Utility Suicidal ideation 02/03/2006 09/14/2013 Bipolar [...] Resident went in to speak with patient [phone]. Patient left around 1010 because she "was tired of waiting." Raquel Yoo RN 12/14/2019 2:46 PM * Nini Mejía MA - 12/14/2019 10:15 AM CDT Parish Golden is a 44 year old female new consult for abdominal pain she i s alert and ambulatory documented in this encounter Plan of Treatment Care Team Description Date Type Specialty GouMathieu MD [address] [place] [address] [phone] 02/25/2020 Office Visit Gastroenterology Rg Nation MD [address] [place] [phone] 03/06/2020 Office Visit Internal Medicine Health Maintenance [...] ot Implanted Type Area Manufactur er 07/20/2014 [id number] / / [id number] Stent Ureteral Percuflex Plus 6fr STENT Left: Ureter [place] [id number] [employer] #[id number] - [id number] Implanted: Qty: 1 on 01/31/2014 by Paty Ramirez MD at [facility] documented as of this encounter Results Not on filedocumented in this encounter Visit Diagnoses Diagnosis ERRONEOUS ENCOUNTER--DISREGARD - Primar y documented in this encounter Insurance Type Payer Benefit Subscriber ID Effective Phone Address Plan / Dates Group Medicare Adv HMO [facility] AMERIVANTA [id number] 2019-P [address] MEDICARE ADVANTAGE GE DUAL resent [id number] [place] [address] ON [address] [facility] [id number] Medicaid [facility] [employer] xxxxxxxxx 2018- P O EDITH X OF [place] Present [id number] [place] [phone] documented as of this encounter
--- OUTSIDE RECORDS SUMMARY | 2020-01-08 11:31 | XMS REPORT | Summary of Care ---
Author Author [facility] - Health Organization [facility] - Health Address Unknown Phone Unavailable Care Team Providers Care Roll Grinder Operator Name Role Phone Pcp, Patient Does Not Have A PCP [phone] Reason for Visit * Reason Comments Erroneous left without being seen encounter-disregard * (Routine) Referred By Contact Referred To Contact Status Reason Specialty Diagnoses / Procedures Mathieu Carter MD [address] [place] [address] Closed Surgery Diagnoses Incisional hernia, without obstruction or gangrene P rocedures CONSULT/REFERRAL GENERAL SURGERY Encounter Details Care Team Description Date Type Department Mihaela Leon MD [address] [place] [address]. [place] [address] ERRONEOUS ENCOUNTER--DISREGARD (Primary Dx) 12/14/2019 Office Visit [facility] General Surgery[address] [phone] Allergies Comments Active Allergy Reactions Severity Noted [...] ppd; counseled to stop. ICD10 Diagnosis Term Oyster Buyer Utility Drug dependence, in remission 01/11/2007 Overview: ICD10 Diagnosis Term Oyster Buyer Utility Alcohol abuse with alcohol-induced disorder 01/12/20 [...] antepartum 09/14/2013 02/11/2014 Overview: ICD10 Diagnosis Term Oyster Buyer Utility Disorder of thyroid 01/11/2007 01/14/2014 Overview: ICD10 Diagnosis Term Oyster Buyer Utility Bipolar disorder 01/11/2007 01/14/2014 Overview: ICD10 Diagnosis Term Oyster Buyer Utility Personal history of other mental disorder 01/11/2007 01/09/2014 ATYPICAL DEPRESSIVE DIS 01/11/2007 01/14/2014 Obesity 01/11/2007 09/14/2013 Overview: ICD10 Diagnosis Term Oyster Buyer Utility Supervision of other high-risk 01/11/2007 09/14/2013 Overview: ICD10 Diagnosis Term Oyster Buyer Utility Suicidal ideation 02/03/2006 09/14/2013 Bipolar I [...] Resident went in to speak with patient [id number]. Patient left around 1010 because she "was tired of waiting." Raquel Yoo RN 12/14/2019 2:46 PM * Nini Mejía MA - 12/14/2019 10:15 AM CDT Parish Golden is a 44 year old female new consult for abdominal pain she i s alert and ambulatory documented in this encounter Plan of Treatment Care Team Description Date Type Specialty GouMathieu MD [address] [place] [address] [phone] 02/25/2020 Office Visit Gastroenterology Rg Nation MD [address] [place] [phone] 03/06/2020 Office Visit Internal Medicine Health Maintenance [...] ot Implanted Type Area Manufactur er 07/20/2014 [id number] / / [id number] Stent Ureteral Percuflex Plus 6fr STENT Left: Ureter [place] [id number] [employer] #[id number] - [id number] Implanted: Qty: 1 on 01/31/2014 by Paty Ramirez MD at [facility] documented as of this encounter Results Not on filedocumented in this encounter Visit Diagnoses Diagnosis ERRONEOUS ENCOUNTER--DISREGARD - Primar y documented in this encounter Insurance Type Payer Benefit Subscriber ID Effective Phone Address Plan / Dates Group Medicare Adv HMO AMERIGROUP [facility] AMERIVANTA [id number] 2019-P [address] MEDICARE ADVANTAGE GE DUAL resent [id number] [place] [address] ON O [facility] [address] Medicaid [facility] AMERIGROUP xxxxxxxxx 2018- P O EDITH X OF [place] Present [id number] [place] [phone] documented as of this encounter
--- OUTSIDE RECORDS SUMMARY | 2020-01-08 11:31 | XMS REPORT | Summary of Care ---
Author Author [facility] - Health Organization [facility] - Health Address Unknown Phone Unavailable Care Team Providers Care Manager Integration Name Role Phone Pcp, Patient Does Not Have A PCP [phone] Reason for Visit * Reason Comments Medical Records Encounter Details Care Team Description Date Type Department Mathieu Carter MD [address] [place] [address] Medical Records 12/14/2019 Telephone [facility] GASTROENTEROLOGY [address] [address] Allergies Comments Active Allergy Reactions Severity Noted Date Codeine Nausea and/or 02/03/2006 Vomiting, Rash Throat swelling Penicillins Rash, Unknown 02/03/2006 - See comments documented as of this encounter (statuses as of 12/14/2019) Medications End Date Status Medication Sig Dispensed [...] as of this encounter (statuses as of 12/14/2019) Active Problems Patient Care Coordination Note Please [...] ppd; counseled to stop. ICD10 Diagnosis Term Collector Of Aquarium Specimens Utility Drug dependence, in remission 01/11/2007 Overview: ICD10 Diagnosis Term Collector Of Aquarium Specimens Utility Alcohol abuse with alcohol-induced disorder 01/12/20 07 documented as of this encounter (statuses as of 12/14/2019) Resolved Problems Problem Noted Date Resolved Date [...] antepartum 09/14/2013 02/11/2014 Overview: ICD10 Diagnosis Term Collector Of Aquarium Specimens Utility Disorder of thyroid 01/11/2007 01/14/2014 Overview: ICD10 Diagnosis Term Collector Of Aquarium Specimens Utility Bipolar disorder 01/11/2007 01/14/2014 Overview: ICD10 Diagnosis Term Collector Of Aquarium Specimens Utility Personal history of other mental disorder 01/11/2007 01/09/2014 ATYPICAL DEPRESSIVE DIS 01/11/2007 01/14/2014 Obesity 01/11/2007 09/14/2013 Overview: ICD10 Diagnosis Term Collector Of Aquarium Specimens Utility Supervision of other high-risk 01/11/2007 09/14/2013 Overview: ICD10 Diagnosis Term Collector Of Aquarium Specimens Utility Suicidal ideation 02/03/2006 09/14/2013 Bipolar I disorder, most recent episode (or current) unspec ified 02/03/2006 09/14/2013 documented as of this encounter (statuses as of 12/14/2019) Immunizations Name Administration Dates Next Due HEP [...] Date Type Specialty Gou, Mathieu Frank MD [address] [place] [address] [phone] 02/25/2020 Office Visit Gastroenterology Rg Nation MD [address] [phone] 03/06/2020 Office Visit Internal Medicine [...] ot Implanted Type Area Manufactur er 07/20/2014 [id number] / / [id number] Stent Ureteral Percuflex Plus 6fr STENT Left: Ureter [place] [id number] ReelGenie #[id number] - [id number] Implanted: Qty: 1 on 01/31/2014 by Paty Ramirez MD at [facility] documented as of this encounter Results Not on filedocumented in this encounter Insurance Type Payer Benefit Subscriber ID Effective Phone Address Plan / Dates Group Medicare Adv O AMERIGROUP [facility] AMERIVANTA [id number] 2019-P [address] MEDICARE ADVANTAGE GE DUAL resent [id number] [facility] [address] [facility] xxxxxxxxx 2018- P O EDITH X OF [place] Present [address] [place] [address] documented as of this encounter
--- OUTSIDE RECORDS SUMMARY | 2020-01-08 11:31 | XMS REPORT | Summary of Care ---
Author Author [facility] - Health Organization [facility] - Health Address Unknown Phone Unavailable Care Team Providers Care Ore Digger Name Role Phone Pcp, Patient Does Not Have A PCP [phone] Reason for Visit * Reason Comments LAB WORK Encounter Details Care Team Description Date Type Department Mathieu Carter MD [address] [place] [address] Only, Lcc Test Preop testing 01/01/2020 Laboratory Only [facility] PHLEBOTOMY/LAB [address] [facility] [address] [place] [phone] Allergies Comments Active Allergy Reactions Severity Noted Date Codeine Nausea and/or 02/03/2006 Vomiting, Rash Throat swelling Penicillins Rash, Unknown 02/03/2006 - See comments documented as of this encounter (statuses as of 01/01/2020) Medications End Date Status Medication Sig Dispensed [...] as of this encounter (statuses as of 01/01/2020) Active Problems Patient Care Coordination Note Please obtain Hepatitis panel, LFTs, TSH at Next visit. Thanks Problem Noted Date Incisional hernia, without obstruction or gangrene 0 12/26/2019 Overview: Added automatically from request for oc nagel [id number] Change in bowel habit 12/26/2019 Overview: Added automatically from request for oc nagel [id number] Insomnia 04/26/2018 Status post emergency hysterectomy 02/06/20 14 premature rupture of membranes 02/05/2014 Chorioamnionitis 02/05/2014 Anxiety 02/05/2014 Poor dentition 02/05/2014 Ileus 01/28/2014 Hepatitis C 01/14/2014 Tobacco use disorder complicating , childbir th, or puerperium, 01/11/2007 antepartum Overview: Smokes 1/2 ppd; counseled to stop. ICD10 Diagnosis Term Head Setter Utility Drug dependence, in remission 01/11/2007 Overview: ICD10 Diagnosis Term Head Setter Utility Alcohol abuse with alcohol-induced disorder 01/12/20 07 documented as of this encounter (statuses as of 01/01/2020) Resolved Problems Problem Noted Date Resolved Date [...] antepartum 09/14/2013 02/11/2014 Overview: ICD10 Diagnosis Term Head Setter Utility Disorder of thyroid 01/11/2007 01/14/2014 Overview: ICD10 Diagnosis Term Head Setter Utility Bipolar disorder 01/11/2007 01/14/2014 Overview: ICD10 Diagnosis Term Head Setter Utility Personal history of other mental disorder 01/11/2007 01/09/2014 ATYPICAL DEPRESSIVE DIS 01/11/2007 01/14/2014 Obesity 01/11/2007 09/14/2013 Overview: ICD10 Diagnosis Term Head Setter Utility Supervision of other high-risk 01/11/2007 09/14/2013 Overview: ICD10 Diagnosis Term Head Setter Utility Suicidal ideation 02/03/2006 09/14/2013 Bipolar I disorder, most recent episode (or current) unspec ified 02/03/2006 09/14/2013 documented as of this encounter (statuses as of 01/01/2020) Immunizations Name Administration Dates Next Due HEP [...] have you been in contact with [facility]elie [facility] to assess someone who was confirmed or suspected to have Coronavirus / COVID-19? documented as of this encounter Last Filed Vital Signs Not on filedocumented in this encounter Nursing Notes * Alycia Levi - 01/01/2020 9:45 AM CDT Pre op testing COVID19 nasal swab Patient procedure is on the so I ordered a rapid COVID19 swab documented in this encounter Plan of Treatment Care Team Description Date Type Specialty Mathieu Carter MD [address] [place] [address] Incisional hernia, without obstruction o r gangrene 01/03/2020 Hospital Surgery Encounter Sarah Tripp RN [address] [place] [address] 01/03/2020 Anesthesia Surgery Event SandeepuMathieu MD [address] [place], [place] [address] COLONOSCOPY 01/03/2020 Surgery Surgery Gou, Mathieu Frank MD [address] [place] [address] [phone] 02/25/2020 Office Visit Gastroenterology Rg Nation MD [facility] [address] [address] 03/06/2020 Office Visit Internal Medicine [...] ot Implanted Type Area Manufactur er 07/20/2014 [id number] / / [id number] Stent Ureteral Percuflex Plus 6fr STENT Left: Ureter [place] [id number] Monitise Scientific #[id number] - [id number] Implanted: Qty: 1 on 01/31/2014 by Paty Ramirez MD at [facility] documented as of this encounter Procedures Comments Procedure Name Priority Date/Time Associated Diag nosis COVID-19 (ID NOW RAPID Routine 01/01/2020 Preop t esting TESTING) 9:36 AM CDT documented in this encounter Results * COVID-19 (ID NOW RAPID TESTING) (01/01/2020 9:36 AM CDT) SARS-CoV-2 Not Detected Not Detected [facility] Rapid ID NOW [facility] Specimen Swab - NASOPHARYNGEAL SWAB Narrative Performed At ID NOW COVID-19 Assay is an isothermal nucleic acid amplification test intended [facility] for the qualitative detection of nucleic acid from SA RS-CoV-2 viral RNA in [facility] nasopharyngeal (SPACE PHYSICIST) specimens. It is used under Emerg ency Use Authorization CAMPUS (EUA) by FDA. The limit of detection (L OD) of the assay is 125 Genome Equivalents/mL. A positive result is indicative of the presence of SARS-CoV-2 RNA. Clinical correlation with patient history and ot her diagnostic information is necessary to determine patient infection status. A negative (Not Detected) result does n ot preclude SARS-CoV-2 infection. In patients with clinical symptoms and oth er tests that are consistent with SARS-CoV-2 infection, negative results should be treated as presumptive negative and a new specimen should be tested wit h alternative PCR molecular test. Invalid: Please collect a new specimen for repeat patient testing if clinically indicated. Performing Organization Address City/State/[facility] [email or web address] Ph one Number [facility] CLIA: [id number] [place] [address] documented in this encounter Visit Diagnoses Diagnosis Incisional hernia, without obstruction or gangrene Incisional hernia without mention of ob struction or gangrene Change in bowel habit Preop testing Preoperative examination, unspecified Incisional hernia, without obstruction or gangrene Incisional hernia without mention of ob struction or gangrene Change in bowel habit documented in this encounter Additional Health Concerns Last Indicated Resolved Time Infection Onset Date 01/01/2020 01/01/2020 11:31 AM CDT COVID-19 Rule Out 01/01/2020 documented as of this encounter Insurance Type Payer Benefit Subscriber ID Effective Phone Address Plan / Dates Group Medicare Adv HMO [facility] AMERIVANTA [id number] 2019-P [address] MEDICARE ADVANTAGE GE DUAL resent [id number] [facility] ON O [facility] [address] Medicaid [facility] AMERIGROUP [id number] 2018- P O EDITH X OF [place] Present [address] [place] [phone] documented as of this encounter
--- OUTSIDE RECORDS SUMMARY | 2020-01-08 11:31 | XMS REPORT | Summary of Care ---
Author Author [facility] - Health Organization [facility] - Health Address Unknown Phone Unavailable Care Team Providers Care Design Cell Engineer Name Role Phone Pcp, Patient Does Not Have A PCP [phone] Reason for Visit * Reason Comments LAB WORK Encounter Details Care Team Description Date Type Department Mathieu Carter MD [address] [place] [address] Vls-Lab Incisional hernia, without obstruction o r gangrene; History of hepatitis C virus infection; Change in bowel habit 12/13/2019 Neon Tube Pumper [facility] Visit PHLEBOTOMY/LAB [address] [facility] [address] [place] [phone] Allergies Comments Active Allergy Reactions Severity Noted [...] ppd; counseled to stop. ICD10 Diagnosis Term Technician Assistant Utility Drug dependence, in remission 01/11/2007 Overview: ICD10 Diagnosis Term Technician Assistant Utility Alcohol abuse with alcohol-induced disorder [...] antepartum 09/14/2013 02/11/2014 Overview: ICD10 Diagnosis Term Technician Assistant Utility Disorder of thyroid 01/11/2007 01/14/2014 Overview: ICD10 Diagnosis Term Technician Assistant Utility Bipolar disorder 01/11/2007 01/14/2014 Overview: ICD10 Diagnosis Term Technician Assistant Utility Personal history of other mental disorder 01/11/2007 01/09/2014 ATYPICAL DEPRESSIVE DIS 01/11/2007 01/14/2014 Obesity 01/11/2007 09/14/2013 Overview: ICD10 Diagnosis Term Technician Assistant Utility Supervision of other high-risk 01/11/2007 09/14/2013 Overview: ICD10 Diagnosis Term Technician Assistant Utility Suicidal ideation 02/03/2006 09/14/2013 Bipolar [...] Treatment Care Team Description Date Type Specialty Mihaela Leon MD [address] [place] [address]. [place] [address] 12/14/2019 Office Visit Surgery GouMathieu MD [address] [place] [address] 02/25/2020 Office Visit Gastroenterology Rg Nation MD [facility] [address] [phone] 03/06/2020 Office Visit Internal Medicine [...] ot Implanted Type Area Manufactur er 07/20/2014 [id number] / / [id number] Stent Ureteral Percuflex Plus 6fr STENT Left: Ureter [place] [id number] Trendmeon #[id number] - [id number] Implanted: Qty: 1 on 01/31/2014 by Paty Ramirez MD at [facility] documented as of this encounter Results Not on filedocumented in this encounter Visit Diagnoses Diagnosis Incisional hernia, without obstruction or gangrene Incisional hernia without mention of ob struction or gangrene History of hepatitis C virus infection Change in bowel habit documented in this encounter Insurance Type Payer Benefit Subscriber ID Effective Phone Address Plan / Dates Group Medicare Adv HMO AMERIGROUP [facility] AMERIVANTA [id number] 2019-P [address] MEDICARE ADVANTAGE GE DUAL resent [id number] [facility] ON [facility] [address] Medicaid [facility] xxxxxxxxx 2018- P O EDITH X OF [place] Present [address] [place] [phone] documented as of this encounter
--- OUTSIDE RECORDS SUMMARY | 2020-01-08 11:31 | XMS REPORT | Summary of Care ---
Author Author [facility] - Health Organization [facility] - Health Address Unknown Phone Unavailable Care Team Providers Care Adobe Ball Mixer Name Role Phone Pcp, Patient Does Not Have A PCP [phone] Reason for Visit * Reason Comments LAB WORK Encounter Details Care Team Description Date Type Department Mathieu Carter MD [address] [place] [address] Only, Lcc Test Preop testing 01/01/2020 Laboratory Only [facility] PHLEBOTOMY/LAB [address] [facility] [address] [place] [phone] Allergies Comments Active Allergy Reactions Severity Noted [...] Added automatically from request for oc nagel [id number] Change in bowel habit 12/26/2019 Overview: Added automatically from request for oc nagel [id number] Insomnia 04/26/2018 Status post emergency hysterectomy 02/06/20 14 premature rupture of membranes 02/05/2014 Chorioamnionitis 02/05/2014 Anxiety 02/05/2014 Poor dentition 02/05/2014 Ileus 01/28/2014 Hepatitis C 01/14/2014 Tobacco use disorder complicating , childbir th, or puerperium, 01/11/2007 antepartum Overview: Smokes 1/2 ppd; counseled to stop. ICD10 Diagnosis Term Selling Manager Utility Drug dependence, in remission 01/11/2007 Overview: ICD10 Diagnosis Term Selling Manager Utility Alcohol abuse with alcohol-induced disorder [...] antepartum 09/14/2013 02/11/2014 Overview: ICD10 Diagnosis Term Selling Manager Utility Disorder of thyroid 01/11/2007 01/14/2014 Overview: ICD10 Diagnosis Term Selling Manager Utility Bipolar disorder 01/11/2007 01/14/2014 Overview: ICD10 Diagnosis Term Selling Manager Utility Personal history of other mental disorder 01/11/2007 01/09/2014 ATYPICAL DEPRESSIVE DIS 01/11/2007 01/14/2014 Obesity 01/11/2007 09/14/2013 Overview: ICD10 Diagnosis Term Selling Manager Utility Supervision of other high-risk 01/11/2007 09/14/2013 Overview: ICD10 Diagnosis Term Selling Manager Utility Suicidal ideation 02/03/2006 09/14/2013 Bipolar [...] have you been in contact with Am[facility]ie [facility] to assess someone who was confirmed or [...] Description Date Type Specialty Mathieu Carter MD [address] [place] [address] Incisional hernia, without obstruction o r gangrene 01/03/2020 Hospital Surgery Encounter Sarah Tripp RN [address] [place] [address] 01/03/2020 Anesthesia Surgery Event SandeepuMathieu MD [address] [place], [place] [address] COLONOSCOPY 01/03/2020 Surgery Surgery Gou, Mathieu Frank MD [address] [place] [address] [phone] 02/25/2020 Office Visit Gastroenterology Rg Nation MD [facility] [address] [address] 03/06/2020 Office Visit Internal Medicine [...] ot Implanted Type Area Manufactur er 07/20/2014 [id number] / / [id number] Stent Ureteral Percuflex Plus 6fr STENT Left: Ureter [place] [id number] [employer] #[id number] - [id number] Implanted: Qty: 1 on 01/31/2014 by Paty Ramirez MD at [facility] documented as of this encounter Procedures Comments Procedure Name Priority Date/Time Associated Diag nosis COVID-19 (ID NOW RAPID Routine 01/01/2020 Preop t esting TESTING) 9:36 AM CDT documented in this encounter Results * COVID-19 (ID NOW RAPID TESTING) (01/01/2020 9:36 AM CDT) SARS-CoV-2 Not Detected Not Detected [facility] Rapid ID NOW [facility] Specimen Swab - NASOPHARYNGEAL SWAB Narrative Performed At ID NOW COVID-19 Assay is an isothermal nucleic acid amplification test intended [facility] for the qualitative detection of nucleic acid from SA RS-CoV-2 viral RNA in [facility] nasopharyngeal (FOOD AND BEVERAGE CASHIER) specimens. It is used under Emerg ency [...] testing if clinically indicated. Performing Organization Address City/State/[place] Ph one Number [facility] CLIA: [id number] [place] [address] documented in this encounter Visit Diagnoses [...] Plan / Dates Group Medicare Adv HMO [facility] AMERIVANTA [id number] 2019-P P[address]X MEDICARE ADVANTAGE GE DUAL resent [id number] [facility] ON O [facility] [id number] Medicaid [facility] AMERIGROUP [id number] 2018- P O EDITH X OF [place] Present [address] [place] [phone] documented as of this encounter
--- OUTSIDE RECORDS SUMMARY | 2020-01-08 11:31 | XMS REPORT | Summary of Care ---
Author Author [facility] - [facility] Organization [facility] Address Unknown Phone Unavailable Care Team Providers Care Android Developer Name Role Phone Pcp, Patient Does Not Have A PCP Reason for Visit * Reason Comments Results Encounter Details Care Team Description Date Type Department Rg Nation MD [address] [phone] Results 12/04/2019 Telephone [facility] [address] [facility], [place] [address] Allergies Comments Active Allergy Reactions [...] ppd; counseled to stop. ICD10 Diagnosis Term Inspection Machine Tender Utility Drug dependence, in remission 01/11/2007 Overview: ICD10 Diagnosis Term Inspection Machine Tender Utility Alcohol abuse with alcohol-induced disorder 01/12/20 [...] antepartum 09/14/2013 02/11/2014 Overview: ICD10 Diagnosis Term Inspection Machine Tender Utility Disorder of thyroid 01/11/2007 01/14/2014 Overview: ICD10 Diagnosis Term Inspection Machine Tender Utility Bipolar disorder 01/11/2007 01/14/2014 Overview: ICD10 Diagnosis Term Inspection Machine Tender Utility Personal history of other mental disorder 01/11/2007 01/09/2014 ATYPICAL DEPRESSIVE DIS 01/11/2007 01/14/2014 Obesity 01/11/2007 09/14/2013 Overview: ICD10 Diagnosis Term Inspection Machine Tender Utility Supervision of other high-risk 01/11/2007 09/14/2013 Overview: ICD10 Diagnosis Term Inspection Machine Tender Utility Suicidal ideation 02/03/2006 09/14/2013 Bipolar I [...] Treatment Care Team Description Date Type Specialty Rg Nation MD [address] [address] 12/06/2019 Telemedicine Internal Medicine Visit Mathieu Carter MD [address] [place] [address] 12/11/2019 Telemedicine Gastroenterology Visit Health Maintenance [...] ot Implanted Type Area Manufactur er 07/20/2014 [id number] / / [id number] Stent Ureteral Percuflex Plus 6fr STENT Left: Ureter [place] [id number] CanDi[employer] Scientific #[id number] - [id number] Implanted: Qty: 1 on 01/31/2014 by Paty Ramirez MD at [facility] documented as of this encounter Results Not on filedocumented in this encounter Insurance Type Payer Benefit Subscriber ID Effective Phone Address Plan / Dates Group Medicare Adv O AMERIGROUP [facility] AMERIVANTA [id number] 2019-P [address] MEDICARE ADVANTAGE GE DUAL resent [id number] [facility] ON O [facility] [id number] Medicaid [facility]OUP xxxxxxxxx 2018- P O EDITH X OF [place] Present [id number] [place] [address] documented as of this encounter
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
--- OUTSIDE RECORDS SUMMARY | 2020-01-08 11:31 | XMS REPORT | Summary of Care ---
Author Author [facility] - Health Organization [facility] - Health Address Unknown Phone Unavailable Care Team Providers Care Sales Agent Protective Service Name Role Phone Pcp, Patient Does Not Have A PCP [phone] Reason for Visit * Reason Comments LAB WORK Encounter Details Care Team Description Date Type Department Mathieu Carter MD [address] [place] [address] Only, Lcc Test Preop testing 01/01/2020 Laboratory Only [facility]LE[facility]LAB [address] [facility] [address] [place] [phone] Allergies Comments Active Allergy Reactions Severity Noted [...] Added automatically from request for oc nagel [id number] Change in bowel habit 12/26/2019 Overview: Added automatically from request for oc nagel [id number] Insomnia 04/26/2018 Status post emergency hysterectomy 02/06/20 14 premature rupture of membranes 02/05/2014 Chorioamnionitis 02/05/2014 Anxiety 02/05/2014 Poor dentition 02/05/2014 Ileus 01/28/2014 Hepatitis C 01/14/2014 Tobacco use disorder complicating , childbir th, or puerperium, 01/11/2007 antepartum Overview: Smokes 1/2 ppd; counseled to stop. ICD10 Diagnosis Term Security Police Officer Utility Drug dependence, in remission 01/11/2007 Overview: ICD10 Diagnosis Term Security Police Officer Utility Alcohol abuse with alcohol-induced disorder 01/12/20 [...] antepartum 09/14/2013 02/11/2014 Overview: ICD10 Diagnosis Term Security Police Officer Utility Disorder of thyroid 01/11/2007 01/14/2014 Overview: ICD10 Diagnosis Term Security Police Officer Utility Bipolar disorder 01/11/2007 01/14/2014 Overview: ICD10 Diagnosis Term Security Police Officer Utility Personal history of other mental disorder 01/11/2007 01/09/2014 ATYPICAL DEPRESSIVE DIS 01/11/2007 01/14/2014 Obesity 01/11/2007 09/14/2013 Overview: ICD10 Diagnosis Term Security Police Officer Utility Supervision of other high-risk 01/11/2007 09/14/2013 Overview: ICD10 Diagnosis Term Security Police Officer Utility Suicidal ideation 02/03/2006 09/14/2013 Bipolar I [...] have you been in contact with [facility] to assess someone who was [...] Description Date Type Specialty Mathieu Carter MD [address] [place] [address] Incisional hernia, without obstruction o r gangrene 01/03/2020 Hospital Surgery Encounter Sarah Tripp RN [address] [place] [address] 01/03/2020 Anesthesia Surgery Event Mathieu Carter MD [address] [place], [place] [phone] COLONOSCOPY 01/03/2020 Surgery Surgery [place], Mathieu Frank MD [address] [place], [place] [phone] 02/25/2020 Office Visit Gastroenterology Rg Nation MD [facility] [address] [phone] 03/06/2020 Office Visit Internal Medicine [...] ot Implanted Type Area Manufactur er 07/20/2014 [id number] / / [id number] Stent Ureteral Percuflex Plus 6fr STENT Left: Ureter [place] [id number] [employer] #[id number] - [id number] Implanted: Qty: 1 on 01/31/2014 by Paty Ramirez MD at [facility] documented as of this encounter [...] Indicated Resolved Time Infection Onset Date 01/01/2020 COVID-19 Rule Out 01/01/2020 documented as of this encounter Insurance Type Payer Benefit Subscriber ID Effective Phone Address Plan / Dates Group Medicare Adv HMO [facility] AMERIVANTA [id number] 2019-P [address] MEDICARE ADVANTAGE GE DUAL resent [id number] [facility] [id number] Medicaid [facility] [id number] 2018- P O EDITH X OF [place] Present [address] [place] [address]87 documented as of this encounter
--- OUTSIDE RECORDS SUMMARY | 2020-01-08 11:31 | XMS REPORT | Summary of Care ---
Author Author [facility] - Health Organization [facility] - Health Address Unknown Phone Unavailable Care Team Providers Care Palliative Medicine Physician Name Role Phone Pcp, Patient Does Not Have A PCP [phone] Encounter Details Care Team Description Date Type Department GoMathieu traylor MD [address] [place] [address] 12/17/2019 Patient Secure [facility] GASTROENTEROLOGY -[facility] [address] [place] [phone] Allergies Comments Active Allergy Reactions Severity [...] Added automatically from request for oc nagel [id number] Change in bowel habit 12/26/2019 Overview: Added automatically from request for oc nagel [id number] Insomnia 04/26/2018 Status post emergency hysterectomy 02/06/20 14 premature rupture of membranes 02/05/2014 Chorioamnionitis 02/05/2014 Anxiety 02/05/2014 Poor dentition 02/05/2014 Ileus 01/28/2014 Hepatitis C 01/14/2014 Tobacco use disorder complicating , childbir th, or puerperium, 01/11/2007 antepartum Overview: Smokes 1/2 ppd; counseled to stop. ICD10 Diagnosis Term International Sales Manager Utility Drug dependence, in remission 01/11/2007 Overview: ICD10 Diagnosis Term International Sales Manager Utility Alcohol abuse with alcohol-induced disorder [...] antepartum 09/14/2013 02/11/2014 Overview: ICD10 Diagnosis Term International Sales Manager Utility Disorder of thyroid 01/11/2007 01/14/2014 Overview: ICD10 Diagnosis Term International Sales Manager Utility Bipolar disorder 01/11/2007 01/14/2014 Overview: ICD10 Diagnosis Term International Sales Manager Utility Personal history of other mental disorder 01/11/2007 01/09/2014 ATYPICAL DEPRESSIVE DIS 01/11/2007 01/14/2014 Obesity 01/11/2007 09/14/2013 Overview: ICD10 Diagnosis Term International Sales Manager Utility Supervision of other high-risk 01/11/2007 09/14/2013 Overview: ICD10 Diagnosis Term International Sales Manager Utility Suicidal ideation 02/03/2006 09/14/2013 Bipolar [...] have you been in contact with [facility] to assess someone who was confirmed or suspected to have Coronavirus / COVID-19? documented as of this encounter Last Filed Vital Signs Not on filedocumented in this encounter Miscellaneous Notes * Telephone Encounter - Allison Penny LVN - 01/01/2020 11:23 AM CDT Script was sent 12/11/2019 and 12/31/2019 documented in this encounter Plan of Treatment Care Team Description Date Type Specialty Mathieu Carter MD [address] [place] [address] Incisional hernia, without obstruction o r gangrene 01/03/2020 Hospital Surgery Encounter Sarah Tripp RN [address] [place] [address] 01/03/2020 Anesthesia Surgery Event GouMathieu MD [address] [place] [address] [phone] COLONOSCOPY 01/03/2020 Surgery Surgery [place], Mathieu Frank MD [address] [place] [address] [phone] 02/25/2020 Office Visit Gastroenterology Rg Nation MD [facility] [address] [phone] 03/06/2020 Office Visit Internal Medicine Health Maintenance [...] ot Implanted Type Area Manufactur er 07/20/2014 [id number] / / [id number] Stent Ureteral Percuflex Plus 6fr STENT Left: Ureter [place] [id number] [employer] #[id number] - [id number] Implanted: Qty: 1 on 01/31/2014 by Paty Ramirez MD at [facility] documented as of this encounter Results Not on filedocumented in this encounter Additional Health Concerns Last Indicated Resolved Time Infection Onset Date 01/01/2020 COVID-19 Rule Out 01/01/2020 documented as of this encounter Insurance Type Payer Benefit Subscriber ID Effective Phone Address Plan / Dates Group Medicare Adv [facility] [id number] 2019-P [address] MEDICARE ADVANTAGE GE DUAL resent [id number] [facility] ON O [facility], [address] Medicaid [facility] AMERIGROUP [id number] 2018- P Ariadna SHARMA X [place] Present [address] [place] [address] documented as of this encounter
--- OUTSIDE RECORDS SUMMARY | 2020-01-08 11:31 | XMS REPORT | Summary of Care ---
Author Author [facility] - [employer] Organization [facility] Address Unknown Phone Unavailable Care Team Providers Care Preconstruction Manager Name Role Phone Pcp, Patient Does Not Have A PCP [phone] Reason for Referral * (Routine) Referred By Contact Referred To Contact Status Reason Specialty Diagnoses / Procedures Mathieu Carter MD [address] [place] [address] [id number] Authorized Surgery Diagnoses Internal hemorrhoids P rocedures CONSULT/REFERRAL COLORECTAL SURGERY Reason for Visit * Auth/Cert Referred By Contact Referred To Contact Status Reason Specialty Diagnoses / Procedures Vl Preop [address] [place] [address] Surgery Diagnoses Incisional hernia, without obstruction or gangrene [K43.2] Change in bowel habit [R19.4] P rocedures [place] COLONOSCOPY W/BIOPSY SINGLE/MULTIPLE COLONOSCOPY Encounter Details Care Team Description Date Type Department Mathieu Carter MD [address] [place] [address] Incisional hernia, without obstruction o r gangrene 01/03/[address] [facility] Encounter Post Anesthesia Care Unit [address] [place] [address] Allergies Comments Active Allergy Reactions [...] Added automatically from request for oc nagel [id number] Change in bowel habit 12/26/2019 Overview: Added automatically from request for oc nagel [id number] Insomnia 04/26/2018 Status post emergency hysterectomy 02/06/20 14 premature rupture of membranes 02/05/2014 Chorioamnionitis 02/05/2014 Anxiety 02/05/2014 Poor dentition 02/05/2014 Ileus 01/28/2014 Hepatitis C 01/14/2014 Tobacco use disorder complicating , childbir th, or puerperium, 01/11/2007 antepartum Overview: Smokes 1/2 ppd; counseled to stop. ICD10 Diagnosis Term Dispensing Optician Apprentice Utility Drug dependence, in remission 01/11/2007 Overview: ICD10 Diagnosis Term Dispensing Optician Apprentice Utility Alcohol abuse with alcohol-induced disorder 01/12/20 [...] antepartum 09/14/2013 02/11/2014 Overview: ICD10 Diagnosis Term Dispensing Optician Apprentice Utility Disorder of thyroid 01/11/2007 01/14/2014 Overview: ICD10 Diagnosis Term Dispensing Optician Apprentice Utility Bipolar disorder 01/11/2007 01/14/2014 Overview: ICD10 Diagnosis Term Dispensing Optician Apprentice Utility Personal history of other mental disorder 01/11/2007 01/09/2014 ATYPICAL DEPRESSIVE DIS 01/11/2007 01/14/2014 Obesity 01/11/2007 09/14/2013 Overview: ICD10 Diagnosis Term Dispensing Optician Apprentice Utility Supervision of other high-risk 01/11/2007 09/14/2013 Overview: ICD10 Diagnosis Term Dispensing Optician Apprentice Utility Suicidal ideation 02/03/2006 09/14/2013 Bipolar I disorder, most recent episode (or current) unspec ified 02/03/2006 09/14/2013 documented as of this encounter (statuses as of 01/03/2020) Immunizations Name Administration Dates Next Due HEP B, Adult Dosage 04/26/2018 Influenza Virus Vaccine 04/26/2018 Quad .5 mL IM 6+ MO Influenza Virus Vaccine 07/06/2017 Quad IM 3+ YRS Rho (d) Immune Globulin 03/27/2018 (Deferred: Patides nt Refused) Td 07/21/2013 Twinrix (hep a/hep [...] Signs Reading Time Taken Comments Vital Sign 117/81 01/03/2020 2:40 PM CDT Blood Pressure 58 01/03/2020 2:40 PM CDT Pulse 36.2 C (97.2 F) 01/03/2020 2:10 PM CDT Temperature 16 01/03/2020 2:25 PM CDT Respiratory Rate 98% 01/03/2020 2:40 PM CDT Oxygen Saturation - - Inhaled Oxygen Concentration 78 kg (172 lb) 01/03/2020 10:54 AM CDT Weight 165.1 cm (5' 5") 01/03/2020 10:54 AM CDT Height 28.62 01/03/2020 10:54 AM CDT Body Mass Index documented in this encounter Discharge Instructions * Instructions* Yodit Rosa RN - 01/03/2020 General Discharge Instructions Procedure: Colonoscopy The medication you were given for the procedure may make you dizzy or sleepy. Do not drive, operate machinery or walk for long distances in the heat for at least 12 hours. Many patients feel very tired following these procedures and ne ed to rest for several hours. The procedure may cause mild discomfort in the abdominal area, but the pain s hould disappear within several hours. Notify your physician if you have pain or tenderness for more than six hours or if you notice an increase in abdominal si ze. Advance your diet: You may resume a normal diet but first start with a light meal that is not greasy or fatty. If you are passing gas and this light meal d oes not bother your stomach you may continue with a normal diet for the next belgica l. Resume your home medications. The arm vein where medication was given may be tender. Apply a warm compress . If the pain persists for more than 12 hours, call your doctor. You will probably belch or pass gas during the first few hours after the exam . Light exercise like walking may help relieve bloating or gas pains. Avoid ex treme heat when you exercise. If you had a polypectomy or a biopsy, you may notice a small amount of red bl ood coming from the rectum. You may also have a small amount of blood in your f irst bowel movement. If bleeding increases, call your doctor. If you had a polypectomy, do not take non-steroidal antiinflammatory medicati ons containing Ibuprofen (such as Nuprin, Motrin, Advil) or medications with Asp irin (such as Bufferin) for 7 days, unless your doctor tells you otherwise. For minor pains, you may use medications that do not contain aspirin or ibuprofen ( such as Tylenol or Datril). Special Instructions: Although these symptoms may not be related to your procedure, call your doctor i mmediately if you- Become short of breath Get dizzy Have a fever Experience chest pain Have rapid or irregular heart rate If you had biopsies your physician will call you with the results in approximate ly one week and advise you of when to follow-up. Contact Information Gastroenterology Department [phone] After Hours (Non-Urgent Concerns): [facility] Access Line [phone] and ask to belkys marvin to the physician covering High Fiber Diet (25-30 grams/ day) FRUIT AMOUNT FIBER (gms) VEGETABLES AMOUNT FIBER (gms) Apple with skin 1 medium 5.00 Avocado 1 medium 11.84 Apricot 3 medium 0.98 Beets, cooked 1 cup 2.85 Apricots, dried 5 pieces 2.89 Beet greens 1 cup 4.20 Banana 1 medium 3.92 Bok [place], cooked 1 cup 2.76 Blueberries 1 cup 4.18 Broccoli, cooked 1 cup 4.5 Cantaloupe, cubes 1 cup 1.28 Brussel Sprouts 1 cup 2.84 Figs, dried 2 medium 3.74 Cabbage, cooked 1 cup 4.20 Grapefruit medium 6.12 Carrot 1 medium 2.00 [place], navel 1 medium 3.40 Carrots, cooked 1 cup 5.22 Moca 1 medium 2.00 Cauliflower, cooked 1 cup 3.43 Peaches, dried 3 pieces 3.18 Vinayak Slaw 1 cup 4.00 Pear 1 medium 5.08 [place], sweet 1 cup 4.66 [place] 1 medium 1.00 Green beans 1cup 3.95 Raisins 1.5 oz box 1.60 Celery 1 stalk 1.02 Raspberries 1 cup 8.34 Kale, cooked 1 cup 7.20 Strawberries 1 cup 3.98 Onions, raw 1 cup 2.88 Peas, cooked 1 cup 8.84 CEREAL, GRAINS, PASTA AMOUNT FIBER (gms) Peppers, cooked 1 cup 2.62 Bran Cereal 1 cup 19.94 Pop corn, air popped 3 cups 3.60 Bread, whole wheat 1 slice 2.00 Potato, baked w/ skin 1 medium 4.80 Oats, rolled dry 1 cup 12.00 Spinach, cooked 1 cup 4.32 Pasta, whole wheat 1 cup 6.34 Summer squash 1 cup 2.52 Rice, dry brown 1 cup 7.98 Sweet Potato, cooked 1 cup 5.94 Citizen Of [place] Chard, cooked 1 cup 3.68 BEANS, NUTS, SEEDS AMOUNT FIBER (gms) Tomato 1 medium 1.00 Almonds 1 oz 4.22 Winter Squash 1 cup 5.74 Black Beans, cooked 1 cup 14.92 Zucchini, cooked 1 cup 2.63 Cashews 1 oz 1.00 Flax Seeds 3 tbs 6.97 Garbanzo beans, cooked 1 cup 5.80 Kidney beans, cooked 1 cup 13.33 Lentils, red cooked 1 cup 15.64 Handley beans, cooked 1 cup 13.16 Peanuts 1 oz 2.30 Pistachio nuts 1 oz 3.10 Pumpkin seeds cup 4.12 Soybeans, cooked 1 cup 7.62 [place] seeds cup 3.00 Walnuts 1 oz 3.08 General Surgical Discharge Instructions: ? The medication that was used will be acting in your system for the next 24 etn rs, so you might feel a little drowsy, with impaired judgment and/ or motor func tion. This feeling should wear off. Because the medication is still in your sy stem for the next 24 hours you SHOULD NOT: o Drive a car, operate machinery or power tools. o Drink any alcoholic beverages. o Make any important decisions or sign any legal documents. ? You should rest the remainder of the day and not engage in any physical activi ty. YOU ARE RESPONSIBLE FOR HAVING SOMEONE AT HOME WITH YOU DURING THE AFTERNOO N AND NIGHT IMMEDIATELY FOLLOWING YOUR SURGERY. Patients should cough and deep breathe every 2-4 hours while awake to avoid respiratory complications. ? Because the medications used could produce some residual nausea and vomiting a fter you go home, you should eat lightly today, starting with clear liquids (bro th, soft drinks, apple juice, jello) and toast or crackers, progressing to your normal diet as tolerated. If you get sick, wait a couple of hours and then begi n to eat. After 24 hours the nausea should be gone. If your nausea persists, c all your physician. ? You may experience some pain and your physician will advise you on what to erik e for discomfort. This should be taken as directed. If the pain is not relieve d, contact your physician. You may also have a sore throat from the airway/ viki athing tube that was in place. You may use lozenges, throat spray (Chloraseptic ), or warm salt water gargles for symptomatic relief. ? If you are unable to urinate within five hours after your procedure, call your physician. ? The type of surgery performed will determine how much bleeding (if any) to exp ect. Normally, some spotting might occur. If your dressing pad become saturate d, notify your physician. Elevate surgical site, if applicable, to reduce swell ing and pain. ? Preventing a surgical site infection: o Dont smoke. It is best to quit at least 30 days before surgery, but quitti ng after surgery is also helpful. o If you are a diabetic, keep your blood sugar well controlled. WASH YOUR HANDS . o Keep your wound clean and remember to wash your hands before and after contact with the area. o Call your doctor if you have signs of infection: ? increased tenderness at the surgical site ? red streaks or increased redness of the area ? bad-smelling discharge from the incision ? fever of 101 or higher TOBACCO AVOIDANCE Exposure to tobacco either from smoking or from second hand (environmental)smoke or smokeless tobacco (snuff) is damaging to your health. This information is t o encourage everyone to avoid tobacco exposure. It is recommended that you: If you smoke or use smokeless tobacco, we encourage you to quit. If you have already quit smoking, continue your good work! If you do not smoke or use smokeless tobacco, do not start. Avoid secondhand smoke. Additional Resources: You may want to contact these organizations for further information on smokin g and how to quit- [place] [employer] Association - http://www.lungusa.org/stop-smoking/ [employer] Society - http://www.cancer.org/Healthy/StayAwayfromTobacco/i ndex [place] Heart Association - http://www.heart.org/HEARTORG/GettingHealthy/Joseph Felipa/Quit-Smoking_[facility]_001085_SubHomePage.jsp documented in this encounter Progress Notes * Parvez Balderas RN - 01/02/2020 4:39 PM CDT Patient called with c/o blood in stool. Patient emailed picture of stool. MD's Leidy and Liliya viewed picture, patient is okay to continue with prep, per MD's. documented in this encounter H&P Notes * Mohan Daugherty MD - 01/03/2020 12:56 PM CDT Endoscopy H & P Age: [age] year old Sex: female ASA Class: II Indication: Change in Bowel Habits Past Medical History: Diagnosis Date Bipolar disorder, [...] essential hypertension Unspecified hearing loss Right ear Family history of Colon Cancer/Polyps: no Current Facility-Administered Medications Medication Dose Route Frequency Last Rate Last Dose simethicone (GAS RELIEF (SIMETHICONE)) 40 mg/0.6 mL drops PRN 80 mg at 01/03/20 1230 Allergies Allergen Reactions Codeine Nausea and/or Vomiting and Rash Pcn [Penicillins] Rash and Unknown - See comments Throat swelling Social History Socioeconomic History Marital status: Single Spouse name: Not on file Number of children: Not on file Years of education: Not on file Highest education level: Not on file Occupational History Not on file Social Needs Financial resource strain: Not on file Food insecurity Worry: Not on file Inability: Not on file Transportation needs Medical: Not on file Non-medical: Not on [...] Yes Partners: Male control/protection: None Lifestyle Physical activity Days per week: Not on file Minutes per session: Not on file Stress: Not on file Relationships Social connections Talks on phone: Not on file Gets together: Not on file Attends yazidism service: Not on file Active member of club or organization: Not on file Attends meetings of clubs or organizations: Not on file Relationship status: Not on file Intimate partner violence Fear of current or ex partner: Not on file Emotionally abused: Not on file Physically abused: Not on file Forced sexual activity: Not on file Other Topics Concern Not on file Social History Narrative Not on file General: comfortable appearing, alert and responding to questions appropriately HEENT: MMM Cardio: regular rate Resp: unlabored breathing GI: soft abdomen, non-tender, non-distended Extremities: warm extremities Impression and Plan: Parish Golden is a 44 year old female with history of new constipation for 3 months, prior C section with ventral hernia. Will procee d with colonoscopy for further evaluation Benefits, risks, alternatives, and likelihood of achieving patient's goals of c are discussed. Risks discussed including but not limited to aspiration, infecti on, bleeding, perforation, missed polyps/lesions, failure to obtain a diagnosis, failure to complete the procedure, cardiovascular complications such as WA, str chikis, arrhythmia, and . Informed consent obtained/verified. CBC WBC x10^3 (/uL) Date Value 02/03/2014 12.7 (H) WBC (10*3/L) Date Value 12/13/2019 12.45 (H) RBC x10^6 (/uL) Date Value 02/03/2014 2.89 (L) RBC (10*6/L) Date Value 12/13/2019 5.14 PLT x10^3 (/uL) Date Value 02/03/2014 300 PLT (10*3/L) Date Value 12/13/2019 188 THB ART (G/DL) Date Value 01/27/2014 10.8 (L) HGB Date Value 12/13/2019 16.0 g/dL (H) 02/03/2014 8.7 G/DL (L) HCT (%) Date Value 12/13/2019 47.1 (H) 02/03/2014 26.2 (L) Mohan Daugherty MD PGY 5 Gastroenterology & Hepatology [id number] Associated attestation - Mathieu Carter MD - 01/03/2020 1:09 PM CDT I examined the patient and agree with Dr. Daugherty's note as written. I actively p articipated in the decision-making process. We will proceed with colonoscopy. documented in this encounter Miscellaneous Notes * Nursing Note - Rola Horne RN - 01/02/2020 12:11 PM CDT Confirmation call complete. Pre op covid test done 01/01/20. Final results not detected. * Nursing Note - Rola Horne RN - 01/02/2020 12:09 PM CDT Colonoscopy w/Anesthesia scheduled at [facility] Endoscopy on 01/03/[address] Carter. Dariel scanlon has instructions and Golytely. Call back phone number provided to patient . Patient verbalized understanding of instructions. Discussed with patient the y will need a responsible adult to provide transportation on day of procedure. Patient also informed that they will be contacted day before their procedure wit h arrival time. documented in this encounter Plan of Treatment Care Team Description Date Type Specialty Palmer Sunshine, AGNP [address] [place] [address] 01/11/2020 Office Visit Colorectal Surgery Mathieu Carter MD [address] [place] [address] [phone] 02/25/2020 Office Visit Gastroenterology Rg Nation MD [address] [address] [phone] 03/06/2020 Office Visit Internal Medicine Date/Time Name Type Priority Associated Diag noses 01/03/2020 1:58 PM CDT SURGICAL PATHOLOGY EXAM LAB STAT Order Schedule Name Type Priority Associated Diag noses Release Upon Ordering for 1 Occurrences starting 01/03/2020 SURGICAL PATHOLOGY EXAM LAB Routine Health Maintenance Due Date Last Done Comments [...] ot Implanted Type Area Manufactur er 07/20/2014 [id number] / / [id number] Stent Ureteral Percuflex Plus 6fr STENT Left: Ureter [place] [id number] [employer] #[id number] - [id number] Implanted: Qty: 1 on 01/31/2014 by Paty aRmirez MD at [facility] documented as of this encounter Procedures Comments Procedure Name Priority Date/Time Associated Diag nosis COLONOSCOPY (ENDO) Routine 01/03/2020 12:32 PM CDT documented in this encounter Results Not on filedocumented in this encounter Visit Diagnoses Diagnosis Internal hemorrhoids - Primary Internal hemorrhoids without mention of complication Incisional hernia, without obstruction or gangrene Incisional hernia without mention of ob struction or gangrene Change in bowel habit documented in this encounter Administered Medications Action Date Dose Rate Site Medication Order MAR Action 01/03/2020 12:30 PM CDT 80 mg simethicone (GAS RELIEF (SIMETHICONE)) Given 40 mg/0.6 mL drops PRN, Starting Dalila 01/03/20 at 1230, Unti l Discontinued, Routine, Intra-op Action Date Dose Rate Site Medication Order MAR Action 01/03/2020 10:58 AM CDT 1,000 mL 20 mL/hr lactated ringers IV infusion 1,000 mL New Bag at 20 mL/hr, 1,000 mL, IV Infusion, ONCE, 1 dose, Dalila 01/03/20 at 1045, Routine, Endo Pre-op documented in this encounter Insurance Type Payer Benefit Subscriber ID Effective Phone Address Plan / Dates Group Medicare Adv HMO [facility] [id number] 2019-P [address] MEDICARE ADVANTAGE GE DUAL resent [id number] [place] [address] [address] [facility] [id number] Medicaid [employer] [place] AMER[employer] [id number] 2018- P O EDITH X [place] Present [id number] [place] [phone] documented as of this encounter
--- OUTSIDE RECORDS SUMMARY | 2020-01-08 11:32 | XMS REPORT | Summary of Care ---
Author Author [facility] - Health Organization [facility] Address Unknown Phone Unavailable Care Team Providers Care Steward/Stewardess Tourist Class Name Role Phone Pcp, Patient Does Not Have A PCP [phone] Reason for Visit * Reason Onset Date Comments Refill Request 01/06/2020 Encounter Details Care Team Description Date Type Department Rg Nation MD [address] [phone] Refill Request 01/06/2020 Refill [facility] Health Interna l Medicine- [facility] Ctr [address] [facility], [place] [phone] Allergies Comments Active Allergy Reactions Severity Noted Date Codeine Nausea and/or 02/03/2006 Vomiting, Rash Throat swelling Penicillins Rash, Unknown 02/03/2006 - See comments documented as of this encounter (statuses as of 01/06/2020) Medications End Date Status Medication Sig Dispensed Refills Start Date Active peg-electrolyte soln Take as 4000 mL 0 12/10 236-22.74-6.74 -5.86 gram directed 0 solutionIndications: before Change in bowel habit colonoscopy Active zolpidem 5 mg Take 1 tablet 30 tablet 2 tabletIndications: by mouth at 0 Insomnia, unspecified bedtime as type needed for Insomnia. Active lisinopril 40 mg Take 1 tablet 90 tablet 1 02 tabletIndications: by mouth 0 Essential hypertension daily. documented as of this encounter (statuses as of 01/06/2020) Active Problems Patient Care Coordination Note Please obtain Hepatitis panel, LFTs, TSH at Next visit. Thanks Problem Noted Date Incisional hernia, without obstruction or gangrene 0 12/26/2019 Overview: Added automatically from request for oc nagel [id number] Change in bowel habit 12/26/2019 Overview: Added automatically from request for oc nagel [id number] Insomnia 04/26/2018 Status post emergency hysterectomy 02/06/20 14 premature rupture of membranes 02/05/2014 Chorioamnionitis 02/05/2014 Anxiety 02/05/2014 Poor dentition 02/05/2014 Ileus 01/28/2014 Hepatitis C 01/14/2014 Tobacco use disorder complicating , childbir th, or puerperium, 01/11/2007 antepartum Overview: Smokes 1/2 ppd; counseled to stop. ICD10 Diagnosis Term Rivet Spinner Utility Drug dependence, in remission 01/11/2007 Overview: ICD10 Diagnosis Term Rivet Spinner Utility Alcohol abuse with alcohol-induced disorder 01/12/20 07 documented as of this encounter (statuses as of 01/06/2020) Resolved Problems Problem Noted Date Resolved Date [...] antepartum 09/14/2013 02/11/2014 Overview: ICD10 Diagnosis Term Rivet Spinner Utility Disorder of thyroid 01/11/2007 01/14/2014 Overview: ICD10 Diagnosis Term Rivet Spinner Utility Bipolar disorder 01/11/2007 01/14/2014 Overview: ICD10 Diagnosis Term Rivet Spinner Utility Personal history of other mental disorder 01/11/2007 01/09/2014 ATYPICAL DEPRESSIVE DIS 01/11/2007 01/14/2014 Obesity 01/11/2007 09/14/2013 Overview: ICD10 Diagnosis Term Rivet Spinner Utility Supervision of other high-risk 01/11/2007 09/14/2013 Overview: ICD10 Diagnosis Term Rivet Spinner Utility Suicidal ideation 02/03/2006 09/14/2013 Bipolar I disorder, most recent episode (or current) unspec ified 02/03/2006 09/14/2013 documented as of this encounter (statuses as of 01/06/2020) Immunizations Name Administration Dates Next Due HEP [...] encounter Miscellaneous Notes * Telephone Encounter - Rg Nation MD - 01/06/2020 4:23 PM CDT Patient already has refills. Please call pharmacy to confirm. documented in this encounter Plan of Treatment Care Team Description Date Type Specialty Mihaela Leon MD [address] [place] [address]. [place] [address] 01/11/2020 Office Visit Surgery Palmer Sunshine, AGNP [address] [place] [address] 01/11/2020 Office Visit Colorectal Surgery Mathieu Carter MD [address] [place] [address] [phone] 02/25/2020 Office Visit Gastroenterology Rg Nation MD [facility] [address] [phone] 03/06/2020 Office Visit Internal Medicine Health Maintenance Due Date Last Done Comments PNEUMOCOCCAL 0-64 YEARS 08/04/1979 COMBINED SERIES (1 of 1 - PPSV23) Depression Screening 1985 DTaP,Tdap,and Td Vaccines 1992 07/21/2013 (1 - Tdap) PAP SMEAR 01/10/2010 01/10/2007, 11/02/2004 Breast Cancer Screening 2013 (MAMMOGRAM) INFLUENZA VACCINE (#1) 2020 04/26/2018, 07/06/2017 COLONOSCOPY 01/02/2030 01/03/2020 Colorectal Cancer 01/02/2030 Screening documented as of this encounter Implants Device Identifier Shelf Expiration Date Model / Serial / L ot Implanted Type Area Manufactur er 07/20/2014 [id number] / / [id number] Stent Ureteral Percuflex Plus 6fr STENT Left: Ureter [place] [id number] [employer] #[id number] - [id number] Implanted: Qty: 1 on 01/31/2014 by Paty Ramirez MD at [facility] documented as of this encounter Results Not on filedocumented in this encounter Visit Diagnoses Diagnosis Insomnia, unspecified type Essential hypertension Unspecified essential hypertension documented in this encounter Insurance Type Payer Benefit Subscriber ID Effective Phone Address Plan / Dates Group Medicare Adv O [facility] [id number] 2019-P [address] MEDICARE ADVANTAGE GE DUAL resent [id number] [facility] ON O [facility], [address] Medicaid [facility] [id number] 2018- P O EDITH X [place] Present [address] [place] [address] documented as of this encounter
--- OUTSIDE RECORDS SUMMARY | 2020-01-08 11:32 | XMS REPORT | Summary of Care ---
Author Author [facility] - Health Organization [facility] - Health Address Unknown Phone Unavailable Care Team Providers Care [employer] Name Role Phone Pcp, Patient Does Not Have A PCP [phone] Reason for Visit * Reason Onset Date Comments Refill Request 01/05/2020 Encounter Details Care Team Description Date Type Department Rg Nation MD [address] [phone] Refill Request 01/05/2020 Refill [facility] Health Interna l Medicine- [facility] [address] [facility], [place] [phone] Allergies Comments Active Allergy Reactions Severity Noted Date Codeine Nausea and/or 02/03/2006 Vomiting, Rash Throat swelling Penicillins Rash, Unknown 02/03/2006 - See comments documented as of this encounter (statuses as of 01/05/2020) Medications End Date Status Medication Sig Dispensed [...] tabletIndications: by mouth 0 Essential hypertension daily. 01/05/2020 Discontinued (Reorder) zolpidem 5 mg Take 1 tablet 30 tablet 2 tabletIndications: by mouth at 0 Insomnia, unspecified bedtime as type needed for Insomnia. 01/05/2020 Discontinued (Reorder) lisinopril 40 mg Take 1 tablet 90 tablet 1 02 tabletIndications: by mouth 0 Essential hypertension daily. documented as of this encounter (statuses as of 01/05/2020) Active Problems Patient Care Coordination Note Please obtain Hepatitis panel, LFTs, TSH at Next visit. Thanks Problem Noted Date Incisional hernia, without obstruction or gangrene 0 12/26/2019 Overview: Added automatically from request for oc nagel [id number] Change in bowel habit 12/26/2019 Overview: Added automatically from request for oc nagel [id number] Insomnia 04/26/2018 Status post emergency hysterectomy 02/06/20 14 premature rupture of membranes 02/05/2014 Chorioamnionitis 02/05/2014 Anxiety 02/05/2014 Poor dentition 02/05/2014 Ileus 01/28/2014 Hepatitis C 01/14/2014 Tobacco use disorder complicating , childbir th, or puerperium, 01/11/2007 antepartum Overview: Smokes 1/2 ppd; counseled to stop. ICD10 Diagnosis [employer] Drug dependence, in remission 01/11/2007 Overview: ICD10 Diagnosis Term [employer] Alcohol abuse with alcohol-induced disorder 01/12/20 07 documented as of this encounter (statuses as of 01/05/2020) Resolved Problems Problem Noted Date Resolved Date [...] antepartum 09/14/2013 02/11/2014 Overview: ICD10 Diagnosis Term [employer] Disorder of thyroid 01/11/2007 01/14/2014 Overview: ICD10 Diagnosis Term [employer] Bipolar disorder 01/11/2007 01/14/2014 Overview: ICD10 Diagnosis Term [employer] Personal history of other mental disorder 01/11/2007 01/09/2014 ATYPICAL DEPRESSIVE DIS 01/11/2007 01/14/2014 Obesity 01/11/2007 09/14/2013 Overview: ICD10 Diagnosis Term [employer] Supervision of other high-risk 01/11/2007 09/14/2013 Overview: ICD10 Diagnosis Term [employer] Suicidal ideation 02/03/2006 09/14/2013 Bipolar I disorder, most recent episode (or current) unspec ified 02/03/2006 09/14/2013 documented as of this encounter (statuses as of 01/05/2020) Immunizations Name Administration Dates Next Due HEP [...] Description Date Type Specialty Mihaela Leon MD [address] [place] [phone] 01/11/2020 Office Visit Surgery Palmer Sunshine, AGNP [address] [place] [phone] 01/11/2020 Office Visit Colorectal Surgery Mathieu Carter MD [address] [place], [place] [phone] 02/25/2020 Office Visit Gastroenterology Rg Nation MD [address] [phone] 03/06/2020 Office Visit Internal [...] ot Implanted Type Area Manufactur er 07/20/2014 [id number] / / [id number] Stent Ureteral Percuflex Plus 6fr STENT Left: Ureter Quilcene [id number] [employer] #[id number] - [id number] Implanted: Qty: 1 on 01/31/2014 by Paty Ramirez MD at [facility] documented as of this encounter Results Not on filedocumented in this encounter Visit Diagnoses Diagnosis Insomnia, unspecified type Essential hypertension Unspecified essential hypertension documented in this encounter Insurance Type Payer Benefit Subscriber ID Effective Phone Address Plan / Dates Group Medicare Adv HMO [facility] [id number] 2019-[address] MEDICARE ADVANTAGE GE DUAL resent [id number] [facility] [id number] Medicaid [facility] [employer] [id number] 2018- P O [place] Present [address] [place] [address] documented as of this encounter
--- NOTE | 2020-01-08 12:56 | NUR ---
thumb spica slint placed to right hand
--- NOTE | 2020-01-08 13:04 | Diagnostic Imaging Report ---
Exam: Radiographs of the right wrist 3 views. Radiographs of the right forearm 2 views. Radiographs of the right hand 2 views History: Trauma. Thumb pain. Findings: No fracture or dislocation. Scattered degenerative change. No osseous erosion. Mild soft tissue swelling. No radiopaque foreign body. Impression: Scattered degenerative change. No osseous erosion. Signed by: Dr. Saroj Zaragoza M.D. on 01/08/2020 1:01 PM
== END 2020-01-08 13:35 | disposition home or self-care (01) ==
LOC: ER 10:05
DX: M25.531 Pain in right wrist (principal); M79.641 Pain in right hand; Y04.0XXA Assault by unarmed brawl or fight, initial encounter; Y92.89 Other specified places as the place of occurrence of the external cause; I10 Essential (primary) hypertension; Z86.73 Personal history of transient ischemic attack (TIA), and cerebral infarction without residual deficits
CPT/HCPCS: 73090; 73110; 73120; 99284; J1885

== ENCOUNTER 2020-05-08 09:47 | Emergency (ER) | payer MEDICARE, OTHER ==
[~2020-05-08] VITALS: Ht 165.1 cm; Wt 81.6 kg
== END 2020-05-08 10:14 | disposition home or self-care (01) ==
LOC: ER 10:00
DX: K08.89 Other specified disorders of teeth and supporting structures (principal); L02.412 Cutaneous abscess of left axilla; I10 Essential (primary) hypertension; Z86.73 Personal history of transient ischemic attack (TIA), and cerebral infarction without residual deficits; F17.210 Nicotine dependence, cigarettes, uncomplicated
CPT/HCPCS: 99283